=== PATIENT | female | born 1935 | race African-American/Black ===

== ENCOUNTER 2017-12-01 22:40 | Emergency (ER) | payer MEDICARE, MEDICAID ==
[2017-12-02 01:27] LABS: #Basophils 0.1 thou/uL (0.0-0.2); #Eosinphils 0.2 thou/uL (0.0-0.7); #Lymphocytes 2.2 thou/uL (1.20-3.40); #Monocytes 0.5 thou/uL (0.11-0.59); #Neutrophils 3.1 thou/uL (1.40-6.50); %Basophils 0.9 % (0.0-1.0); %Eosinophils 3.5 % (0.0-10.0); %Lymphocytes 36.2 % (21.0-51.0); %Monocytes 8.6 % (0.0-10.0); %Neutrophils 50.8 % (42.0-75.0); Mean Corpuscular HGB CONC 31.2 g/dL (32.0-36.0); Mean Corpuscular Hemoglobin 26.1 pg (27.0-31.0); Mean Corpuscular Volume 83.8 fl (81.0-99.0); Mean Platelet Volume 9.2 fL (7.4-10.4); Platelet Count 172 thou/uL (130-400); Red Blood Cell (RBC) Count 4.59 mill/uL (4.20-5.40); White Blood Cell (WBC) Count 6.1 thou/uL (4.8-10.8)
[2017-12-02 01:34] LABS: ALT (SGPT) 12 U/L (8-55); AST (SGOT) 21 U/L (5-34); Albumin 3.8 g/dL (3.4-4.8); Alkaline Phosphatase 90 U/L (40-150); Anion Gap 13 mmol/L (10-20); BUN (Urea Nitrogen) 19 mg/dL (9.8-20.1); Bilirubin, Total 0.4 mg/dL (0.2-1.2); Calc. Creatinine Clearance 0 mL/min (70-130); Calcium 9.9 mg/dL (7.8-10.44); Carbon Dioxide 26 mmol/L (23-31); Chloride 106 mmol/L (98-107); Estimated GFR-MDRD 50; Globulin 2.9 g/dL (2.4-3.5); Glucose 119 mg/dL (83-110); Lipase 11 U/L (8-78); Magnesium 2.2 mg/dL (1.6-2.6); Protein, Total 6.7 g/dL (6.0-8.3); Sodium 141 mmol/L (136-145)
[2017-12-02] MEDS ORDERED: predniSONE 20 MG TAB ONE (01:35)
[2017-12-02 01:37] LABS: CKMB 2.9 ng/mL (0-6.6)
--- NOTE | 2017-12-02 07:39 | RAD ---
CHEST 2 VIEWS: HISTORY: Shortness of breath, cough. COMPARISON: Chest 2 views from 2017. FINDINGS: The lungs are clear. No pneumothorax or effusion. Cardiac silhouette and mediastinal contours are w ithin normal limits. Bilateral total shoulder arthroplasties. IMPRESSION: No acute intrathoracic abnormality. POS: [facility]
== END 2017-12-02 02:50 | disposition home or self-care (01) ==
LOC: ERS 22:40
DX: J45.901 Unspecified asthma with (acute) exacerbation (principal); E11.9 Type 2 diabetes mellitus without complications; Z79.4 Long term (current) use of insulin; K21.9 Gastro-esophageal reflux disease without esophagitis; E78.5 Hyperlipidemia, unspecified; I11.0 Hypertensive heart disease with heart failure; I50.9 Heart failure, unspecified; J45.909 Unspecified asthma, uncomplicated; Z79.899 Other long term (current) drug therapy; Z87.891 Personal history of nicotine dependence
CPT/HCPCS: 36415; 71046; 80053; 82553; 83690; 83735; 83880; 84484; 85025; 93005; J7506

== ENCOUNTER 2017-12-18 16:45 | Observation (INO) | payer MEDICARE, MEDICAID ==
[~2017-12-18 16:45] MED LIST: ISOVUE-370 76%-LOCM 1 ML ONE
--- NOTE | 2017-12-18 17:22 | RAD ---
CHEST TWO VIEWS: 12/18/17 COMPARISON: 12/02/17 study. HISTORY: Cough and left sided pleuritic chest pain. Heart size is borderline. The aorta is tortuous. The lungs are clear of infiltrates. Bilateral nahomy l prostheses are present. IMPRESSION: No active intrathoracic disease. POS: [facility]
[2017-12-18 18:01] LABS: #Basophils 0.1 thou/uL (0.0-0.2); #Lymphocytes 1.8 thou/uL (1.20-3.40); #Monocytes 0.6 thou/uL (0.11-0.59); #Neutrophils 4.3 thou/uL (1.40-6.50); %Basophils 1.3 % (0.0-1.0); %Eosinophils 0.1 % (0.0-10.0); %Lymphocytes 26.7 % (21.0-51.0); %Monocytes 9.2 % (0.0-10.0); %Neutrophils 62.6 % (42.0-75.0); Mean Corpuscular Hemoglobin 25.8 pg (27.0-31.0); Mean Corpuscular Volume 83.3 fl (81.0-99.0); Mean Platelet Volume 9.7 fL (7.4-10.4); Platelet Count 147 thou/uL (130-400); Red Blood Cell (RBC) Count 4.65 mill/uL (4.20-5.40); White Blood Cell (WBC) Count 6.8 thou/uL (4.8-10.8)
[2017-12-18 18:07] LABS: PTT 31.6 SEC (22.9-36.1); Prothrombin Time 13.7 SEC (12.0-14.7)
[2017-12-18 18:09] LABS: D-Dimer Test 0.73 *mcg/mL (0.27-0.43)
[2017-12-18] MEDS ORDERED: methylPREDNISolone Sod Succ/PF 125 MG/2 ML VIAL ONE (18:12)
[2017-12-18] MEDS ORDERED: Sterile Water 10 ML ONE (18:14)
[2017-12-18 18:24] LABS: ALT (SGPT) 16 U/L (8-55); AST (SGOT) 26 U/L (5-34); Albumin 3.4 g/dL (3.4-4.8); Alkaline Phosphatase 72 U/L (40-150); Anion Gap 16 mmol/L (10-20); BUN (Urea Nitrogen) 30 mg/dL (9.8-20.1); Bilirubin, Total 0.4 mg/dL (0.2-1.2); CK (CPK) 311 U/L (29-168); Calc. Creatinine Clearance 0 mL/min (70-130); Calcium 8.9 mg/dL (7.8-10.44); Carbon Dioxide 25 mmol/L (23-31); Chloride 102 mmol/L (98-107); Estimated GFR-MDRD 33; Glucose 140 mg/dL (83-110); Lipase 39 U/L (8-78); Potassium 3.7 mmol/L (3.5-5.1); Protein, Total 6.4 g/dL (6.0-8.3); Sodium 139 mmol/L (136-145)
[2017-12-18 18:28] LABS: CKMB 1.2 ng/mL (0-6.6); Troponin I 0.011 ng/mL (< 0.028)
--- NOTE | 2017-12-18 19:27 | CT ---
CT ANGIO OF CHEST AND ABDOMEN PERFORMED WITH INTRAVENOUS CONTRAST ENHANCEMENT WITH 3D RECONSTRUCTIONS : 12/18/17 HISTORY: Left sided chest pain with intermittent upper abdominal pain and shortness of breath. The lungs are clear of any infiltrative process. There is a pleural based nodular density seen along the lateral chest wall in the right upper lobe. This is what appears to be some calcifications and is stable in size as compared to a 03/19/17 exam. The thoracic aorta is well opacified. It is normal in caliber without dissection. There is limited op acification of the pulmonary arteries. I do not see any obvious large central embolus. There are calc ified hilar lymph nodes present. CT ANGIO OF ABDOMEN: The liver is normal in size. Spleen shows calcification along the anterior and left lateral margin. T he spleen is stable as compared to the prior study. The pancreas region is unremarkable. The gallblad ronan has been removed. Right and left adrenal glands are normal in appearance. Right and left kidneys show hypodensities whi ch appear to represent small cysts. The abdominal aorta is normal in caliber without signs of dissection or aneurysm. There is a fat cont aining paraumbilical hernia present. IMPRESSION: No evidence of aortic aneurysm or dissection. Other chronic findings as noted above. POS: [facility]
[2017-12-18 19:57] LABS: Bilirubin Negative (Negative); Blood, Urine Negative (Negative); Clarity CLEAR (Clear); Glucose, Urine (Dipstick) Negative (Negative); Leukocyte Negative (Negative); Nitrite Negative (Negative); Protein, Urine (Dipstick) 100 mg/dL (Neg-Trace)
[2017-12-18 20:02] LABS: Bacteria/HPF None Seen HPF (None Seen); Hyaline Casts/LPF 7-10 HYALINE CAST LPF (0-3 Hyaline); Pathc Cast-AUWi Flag 1.62 (0-2.49); Squamous Epithelial 0-3 HPF (0-3); WBC/HPF 0-3 HPF (0-3)
[2017-12-18 21:58] LABS: Troponin I 0.013 ng/mL (< 0.028)
[2017-12-18] MEDS ORDERED: Mag-Al 1200 mg/1200 mg/30 ML UDCUP PO PRN (22:44)
[2017-12-18] MEDS ORDERED: Senokot 8.6 MG TAB PO PRN (22:44)
[2017-12-18] MEDS ORDERED: Acetaminophen 325 MG TAB PO PRN (22:44)
[2017-12-18] MEDS ORDERED: Ondansetron HCl/PF 4 MG/2 ML Vial IVP PRN (22:44)
[2017-12-18] MEDS ORDERED: Bisacodyl 5 MG TAB PO PRN (22:44)
[2017-12-18] MEDS ORDERED: Calcium Carbonate 500 MG ChewTAB PO PRN (22:44)
[2017-12-18] MEDS ORDERED: Nitroglycerin 0.4 MG TAB (25 Tab Bottle) PO PRN (22:44)
[2017-12-18 23:39] LABS: Cardiac Risk 4.5 (Less than 4.5)
[2017-12-18 23:43] VITALS: BMI 42.7
[2017-12-19 00:10] LABS: Troponin I 0.012 ng/mL (< 0.028)
[2017-12-19] MEDS ORDERED: Nitroglycerin 0.4 MG TAB (25 Tab Bottle) SL PRN (02:32)
[2017-12-19] MEDS ORDERED: PROVENTIL INHALER 6.7 G (200 INHALATIONS) INH PRN ×2 (02:32→20:00)
[2017-12-19] MEDS ORDERED: Acetaminophen 325 MG TAB PO PRN (02:34)
--- NOTE | 2017-12-19 03:22 | HP ---
DATE OF ADMISSION: 12/18/2017 Please note that the patient was seen prior to midnight. CHIEF COMPLAINT: Chest pain and back pain. PRIMARY CARE PHYSICIAN: Vicki Carrillo. HISTORY OF PRESENT ILLNESS: Ms. Narayan is an 82-year-old -Citizen Of [place] female with a known his tory of diabetes, hypertension, chronic congestive diastolic heart failure, COPD on home oxygen, and coronary artery disease, who presented to the emergency room with the above-mentioned complaint. His tory is mainly obtained by the patient herself who is a rather poor historian. Electronic medical re cords have been reviewed. According to Ms. Narayan, she had back pain and that is why she presented to the ER when asked abou t the chest pain, she said "Oh ya, I also had that." Other than that, she cannot tell me much histor y. She endorses shortness of breath and then prompted. She reports that her chest pain was dull and achy and later she said her chest pain was rather sharp. Nevertheless, she is currently symptom nicole e. She otherwise declined any recent illnesses or flu like symptoms. Upon presentation to the emergency room, her blood pressure was 172/59 and she was saturating 98% on room air, she was afebrile. She underwent general examination which was unremarkable including a 12- lead EKG and chest x-ray. She underwent a CT of the chest, abdomen, for dissection rule out, and was negative for the same. She was not found to have any infiltrates either. There is one vital sign r ecord in the emergency room of hypoxia with oxygen saturation of 84% on room air. Nevertheless, she received one dose of Rocephin in the emergency room for "pneumonia." Her D-dimer was also elevated t o 0.73. Otherwise, her cardiac enzymes were done and serial cardiac enzymes are negative x3. She is now being admitted for further evaluation and chest pain workup, rule out acute coronary syndrome. Her last stress test was in 2014, which was unremarkable. Her last echocardiogram was in 09/2016, wh ich showed ejection fraction of 60% without any significant valvular abnormalities. Her flu swab is negative today. PAST MEDICAL HISTORY: 1. Diabetes. 2. Hypertension. 3. Dyslipidemia. 4. History of coronary artery disease. 5. Chronic obstructive pulmonary disease, on home oxygen. 6. Gastroesophageal reflux disease. PAST SURGICAL HISTORY: 1. Right and left rotator cuff surgery. 2. Carpal tunnel surgery. 3. Bilateral knee surgery. 4. Right eye surgery. ALLERGIES: IBUPROFEN, LEVOFLOXACIN. SOCIAL HISTORY: She lives with her daughter who is very supportive. The patient is otherwise indepe ndent with ADLs and IADLs. No history of drug, tobacco, or alcohol abuse. FAMILY HISTORY: Significant for diabetes, hypertension, and heart disease. CURRENT HOME MEDICATIONS: Trazodone 50 mg at bedtime, Bystolic 20 mg daily, amitriptyline 25 mg radha y, montelukast 10 mg daily, Norvasc 2.5 mg daily, albuterol inhaler as needed, Nexium 40 mg daily, as pirin 81 mg daily, hydrocortisone ointment, Lasix 20 mg daily, and sublingual nitroglycerin p.r.n. REVIEW OF SYSTEMS: The following complete review of systems was negative, unless otherwise mentioned in the HPI or below: Constitutional: Weight loss or gain, ability to conduct usual activities. Sk in: Rash, itching. Eyes: Double vision, pain. ENT/Mouth: Nose bleeding, neck stiffness, pain, te nderness. Cardiovascular: Palpitations, dyspnea on exertion, orthopnea. Respiratory: Shortness of breath, wheezing, cough, hemoptysis, fever or night sweats. Gastrointestinal: Poor appetite, abdom inal pain, heartburn, nausea, vomiting, constipation, or diarrhea. Genitourinary: Urgency, frequenc y, dysuria, nocturia. Musculoskeletal: Pain, swelling. Neurologic/Psychiatric: Anxiety, depressio n. Allergy/Immunologic: Skin rash, bleeding tendency. LABORATORY AND DIAGNOSTIC DATA: CBC is rather unimpressive and unremarkable. She has no leukocytosi s anemia or left shift. D-dimer is 0.73. Serum chemistry: BUN 30, creatinine 1.79, blood sugar of 140, creatinine kinase 311. CK-MB normal. Troponin normal x3. BNP less than 10. Lipase unremarkab le. Urinalysis shows proteinuria, but otherwise normal. Chest x-ray by my review has no evidence to suggest pulmonary effusion, infiltrate, or edema. CT with aortic dissection protocol is negative fo r the same. PHYSICAL EXAMINATION: VITAL SIGNS: Upon presentation, blood pressure 172/59, pulse of 82, respirations 20, saturating 98% on room air, temperature 98.9. Most recent blood pressure is 130/66 and she is 98% on 1 liter oxygen . GENERAL: No acute distress, awake, alert, oriented x3. HEENT: Mucous membrane is moist and pink. No oropharyngeal exudate or erythema. Head is normocepha lic, atraumatic. Pupils are equal, reactive to light, and accommodation. Extraocular movements inta ct. NECK: Supple without any lymphadenopathy, JVD, or bruit. CHEST: Clear to auscultation without any wheezing, rales, or rhonchi. Rate and rhythm are regular w ithout any murmur, rubs, or gallops. ABDOMEN: Soft, nontender, nondistended with positive bowel sounds. EXTREMITIES: Free of any cyanosis, clubbing, or edema. NEUROLOGIC: Nonfocal. SKIN: Free of any rashes or bruises. Feels warm and dry to touch. PSYCHIATRIC: Normal affect. IMPRESSION AND PLAN: 1. Chest pain. The patient's symptoms are rather unclear. There is a high possibility because of t he chronic obstructive pulmonary disease flareup. Nevertheless, given her history of coronary artery disease, we will go ahead and obtain a nuclear medicine stress test and admit her to telemetry unit. We will restart her aspirin and beta-todd at this point. Continue to monitor blood pressure charline sely. Serial cardiac enzymes have been unremarkable so far. I do not see any evidence of congestive heart failure, pneumonia on her chest x-ray or her CT scan. At this time, antibiotics are not indic ated. She does not look septic. 2. Chronic obstructive pulmonary disease with chronic hypoxic respiratory failure. Continue oxygen on a regular basis. There was some question of chronic obstructive pulmonary disease flareup for the emergency room physician who found her to be having some wheezing. She will be continued on IV ster oids as initiated in the emergency room along with nebulizers as needed and scheduled. 3. Chronic kidney disease, stage 3. The patient does not appear to be dehydrated at this time. We will avoid any IV fluids. 4. 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 Continue insulin sliding scale with frequent A ccu-Cheks. 5. History of hypertension. Resume home medications as dictated above. 6. History of coronary artery disease. Resume aspirin, beta todd. CODE STATUS: FULL CODE. Discussed with the patient. DISPOSITION: Ms. Narayan is being admitted to observation status for ACS workup. Further manageme nt will depend upon her clinical course.
[2017-12-19 05:48] LABS: Band 20 % (5-11); Hemoglobin 11.9 g/dL (12.0-16.0); Lymphocytes 8 % (21-51); MDiff Complete? YES; Mean Corpuscular HGB CONC 30.9 g/dL (32.0-36.0); Mean Corpuscular Hemoglobin 25.9 pg (27.0-31.0); Mean Corpuscular Volume 83.7 fl (81.0-99.0); Monocytes 3 % (0-10); Neutrophil 69 % (42-75); PLT Morphology Comment Appears Adequate; Platelet Count 147 thou/uL (130-400); RBC Morphology Normal; White Blood Cell (WBC) Count 5.2 thou/uL (4.8-10.8)
[2017-12-19 05:52] LABS: Anion Gap 14 mmol/L (10-20); BUN (Urea Nitrogen) 28 mg/dL (9.8-20.1); Calc. Creatinine Clearance 47 mL/min (70-130); Calcium 9.1 mg/dL (7.8-10.44); Carbon Dioxide 25 mmol/L (23-31); Chloride 103 mmol/L (98-107); Estimated GFR-MDRD 40; Glucose 159 mg/dL (83-110); Potassium 4.2 mmol/L (3.5-5.1); Sodium 138 mmol/L (136-145)
[2017-12-19] MEDS ORDERED: Hydrocortisone 1% Cream 30 GM TUBE TOP PRN (09:00)
[2017-12-19] MEDS ORDERED: Famotidine 20 MG TAB PO SCH (09:00)
[2017-12-19] MEDS ORDERED: Regadenoson 0.4 MG/5 ML SYRINGE ONE (09:46)
[2017-12-19] MEDS: Amitriptyline HCl 25 MG TAB PO SCH (10:23)
[2017-12-19] MEDS: Famotidine 20 MG TAB PO SCH (10:24)
[2017-12-19] MEDS: Enoxaparin Sodium 40 MG/0.4 ML SYRINGE SC SCH (10:24)
[2017-12-19] MEDS: Aspirin 81 mg Enteric Coated Tablet PO SCH (10:24)
[2017-12-19] MEDS: Amlodipine 5 MG TAB PO SCH ×2 (10:24→16:58)
[2017-12-19] MEDS: Furosemide 20 MG TAB PO SCH (10:25)
[2017-12-19] MEDS: Montelukast Sodium 10 mg Tablet PO SCH (10:25)
[2017-12-19] MEDS: Nebivolol HCl 5 MG TAB PO SCH (10:25)
--- NOTE | 2017-12-19 15:33 | NM ---
NUCLEAR MEDICINE CARDIAC MYOCARDIAL PERFUSION SPECT EJECTION FRACTION STUDY WALL MOTION CINE: Date: 12/19/17 HISTORY: 82-year-old female with diabetes mellitus and hypertension, with family history of coronary artery di sease, presents with acute chest pain. TECHNIQUE: Number of days: 1 Rest study: Tc99m sestamibi (Cardiolite) dose: Not performed Pharmacologic stress: Lexiscan dose: 0.4 mg Stress study: Tc99m sestamibi (Cardiolite) dose: 27.5 mCi (Stress only study) FINDINGS: CARDIAC (MYOCARDIAL PERFUSION) SPECT Distribution of sestamibi is homogeneous throughout the left ventricle, with no myocardial perfusion defects. EJECTION FRACTION STUDY EF = 80% WALL MOTION CINE The left ventricular wall motion is normal. There is normal systolic wall thickening. IMPRESSION: Normal. ayo[] POS: [facility]
--- NOTE | 2017-12-19 16:47 | PDOC.PN ---
- Subjective Encounter Start Date: 12/19/17 Encounter Start Time: 16:45 Pt seen for followup re: acute encephalopathy. Denies chest pain, shortness of breath, fevers or chills. - Objective MAR Reviewed: Yes Vital Signs & Weight: Vital Signs (12 hours) Temp Pulse Pulse Pulse Resp BP BP 12/19/17 15:30 98.2 F 78 16 12/19/17 14:41 76 75 159/74 H 175/80 H 12/19/17 14:18 76 20 12/19/17 08:00 97.4 F L 76 20 12/19/17 07:42 97.4 F L 76 20 12/19/17 07:11 12/19/17 07:08 70 16 BP Pulse Ox 12/19/17 15:30 183/81 H 98 12/19/17 14:41 12/19/17 14:18 12/19/17 08:00 12/19/17 07:42 158/78 H 97 12/19/17 07:11 98 12/19/17 07:08 98 I&O: 12/18/17 12/19/17 12/20/17 06:59 06:59 06:59 Output Total 300 150 Balance -300 -150 Result Diagrams: 12/19/17 04:24 12/19/17 04:24 Additional Labs: Accuchecks 12/19/17 05:27 POC Glucose 143 H EKG Reviewed by me: Yes (Tele: NSR) Phys Exam - Physical Examination Morbid obesity HEENT: moist MMs Neck: supple Respiratory: wheezing present Cardiovascular: RRR Gastrointestinal: soft Neurological: moves all 4 limbs Psychiatric: normal affect Deviation from normal: Orfiented to person only Skin: no rash Dx/Plan (1) Acute encephalopathy Code(s): G93.40 - ENCEPHALOPATHY, UNSPECIFIED Status: Acute (2) COPD exacerbation Code(s): J44.1 - CHRONIC OBSTRUCTIVE PULMONARY DISEASE W (ACUTE) EXACERBATION Status: Acute (3) Chest pain Code(s): R07.9 - CHEST PAIN, UNSPECIFIED Status: Resolved (4) CAD (coronary artery disease) Code(s): I25.10 - ATHSCL HEART DISEASE OF [place] CORONARY ARTERY W/O ANG PCTRS Status: Chronic Qualifiers: Coronary Disease-Associated Artery/Lesion type: [place] artery [place] vs. transplanted heart: [place] heart Associated angina: without angina Qualified Code(s): I25.10 - Atherosclerotic heart disease of [place] coronary artery without angina pectoris (5) DM type 2 (diabetes mellitus, type 2) Status: Chronic Qualifiers: Diabetes mellitus complication status: with unspecified complications Diabetes mellitus shelter insulin use: with parts counterman use Qualified Code(s) : E11.8 - Type 2 diabetes mellitus with unspecified complications; Z79.4 - tank terminal gauger (current) use of insulin (6) GERD (gastroesophageal reflux disease) Code(s): K21.9 - GASTRO-ESOPHAGEAL REFLUX DISEASE WITHOUT ESOPHAGITIS Status: Chronic Qualifiers: Esophagitis presence: without esophagitis Qualified Code(s): K21.9 - Gastro -esophageal reflux disease without esophagitis (7) HTN (hypertension) Code(s): I10 - ESSENTIAL (PRIMARY) HYPERTENSION Status: Chronic Qualifiers: Hypertension type: essential hypertension Qualified Code(s): I10 - Essential (primary) hypertension (8) CKD (chronic kidney disease) Code(s): N18.9 - CHRONIC KIDNEY DISEASE, UNSPECIFIED Status: Chronic - Plan * . Stress test normal. Encephalopathy likely due to steroids. Discontinue IV steroids, change to prednisone (to cover for COPD exacerbation) at a lower dose and monitor. Home when encephalopathy resolves. Review of Systems - Review of Systems Constitutional: negative: fever, chills, sweats, weakness, malaise Cardiovascular: negative: chest pain, palpitations, orthopnea, paroxysmal nocturnal dyspnea, edema, light headedness Neurological: Confusion. negative: Weakness, Numbness, Incoordination, Change in Speech, Seizures - Medications/Allergies Allergies/Adverse Reactions: Allergies Allergy/AdvReac Type Severity Reaction Status Date / Time ibuprofen Allergy Intermediate Rash Verified 12/18/17 23:42 levofloxacin [From Levaquin] Allergy Intermediate Rash Verified 12/18/17 23:42 Medications: Current Medications Acetaminophen (Tylenol) 650 mg PO Q4H PRN PRN Reason: Headache/Fever or Pain Acetaminophen (Tylenol) 650 mg PO Q6H PRN PRN Reason: ARTHRITIS Al Hydroxide/Mg Hydroxide (Maalox) 30 ml PO Q6H PRN PRN Reason: Heartburn or Indigestion Albuterol Sulfate (Proventil Hfa) 2 puff INH Q4HR PRN PRN Reason: SOB &/or Wheezing Albuterol/Ipratropium (Duoneb) 3 ml NEB [id number] PRN PRN Reason: SOB &/or Wheezing Albuterol/Ipratropium (Duoneb) 3 ml NEB [id number] [facility] Last Admin: 12/19/17 14:18 Dose: 3 ml Amitriptyline HCl (Elavil) 25 mg PO DAILY [facility] Last Admin: 12/19/17 10:23 Dose: Not Given Amlodipine Besylate (Norvasc) 2.5 mg PO DAILY [facility] Last Admin: 12/19/17 10:24 Dose: Not Given Aspirin (Ecotrin) 81 mg PO DAILY [facility] Last Admin: 12/19/17 10:24 Dose: Not Given Bisacodyl (Dulcolax) 10 mg PO DAILYPRN PRN PRN Reason: Constipation Calcium Carbonate (Tums) 1,000 mg PO Q4H PRN PRN Reason: Heartburn or Indigestion Enoxaparin Sodium (Lovenox) 40 mg SC 0900 [facility] Last Admin: 12/19/17 10:24 Dose: Not Given Famotidine (Pepcid) 20 mg PO DAILY [facility] Last Admin: 12/19/17 10:24 Dose: Not Given Furosemide (Lasix) 20 mg PO DAILY [facility] Last Admin: 12/19/17 10:25 Dose: Not Given Hydrocortisone/Aloe (Hydrocortisone 1% Cream) 0 gm TOP TID PRN PRN Reason: RASH/ITCH Montelukast Sodium (Singulair) 10 mg PO DAILY [facility] Last Admin: 12/19/17 10:25 Dose: Not Given Nebivolol (Bystolic) 20 mg PO DAILY [facility] Last Admin: 12/19/17 10:25 Dose: Not Given Nitroglycerin (Nitrostat) 0.4 mg PO Q5MIN PRN PRN Reason: Chest Pain Nitroglycerin (Nitrostat) 0.4 mg SL Q5MIN PRN PRN Reason: Chest Pain Ondansetron HCl (Zofran) 4 mg IVP Q6H PRN PRN Reason: Nausea/Vomiting Pantoprazole Sodium (Protonix) 40 mg PO DAILY [facility] Last Admin: 12/19/17 10:25 Dose: Not Given Prednisone (Prednisone) 40 mg PO QAM-[facility] Senna (Senokot) 2 tab PO HSPRN PRN PRN Reason: Constipation Sodium Chloride (Flush - Normal Saline) 10 ml IVF PRN PRN PRN Reason: Saline Flush Trazodone HCl (Desyrel) 50 mg PO HS [facility]
[2017-12-19] MEDS ORDERED: hydrALAZINE 20 MG/ML VIAL SLOW IVP PRN (19:59)
[2017-12-19] MEDS: Benzonatate 100 MG CAP PO PRN (20:32)
[2017-12-19] MEDS ORDERED: traZODone HCl 50 MG TAB PO SCH (21:00)
[2017-12-20] MEDS ORDERED: Sterile Water 10 ML VIAL FS SCH (01:45)
[2017-12-20] MEDS ORDERED: Ziprasidone 20 MG VIAL IM SCH (01:45)
[2017-12-20] MEDS: Benzonatate 100 MG CAP PO PRN (02:52)
[2017-12-20] MEDS ORDERED: predniSONE 20 MG TAB PO SCH (08:00)
[2017-12-20] MEDS: Amitriptyline HCl 25 MG TAB PO SCH (09:08)
[2017-12-20] MEDS: Aspirin 81 mg Enteric Coated Tablet PO SCH (09:09)
[2017-12-20] MEDS: Amlodipine 5 MG TAB PO SCH (09:09)
[2017-12-20] MEDS: Nebivolol HCl 5 MG TAB PO SCH (09:10)
[2017-12-20] MEDS: Montelukast Sodium 10 mg Tablet PO SCH (09:10)
[2017-12-20] MEDS: Enoxaparin Sodium 40 MG/0.4 ML SYRINGE SC SCH (09:10)
[2017-12-20] MEDS: Furosemide 20 MG TAB PO SCH (09:10)
[2017-12-20] MEDS: Famotidine 20 MG TAB PO SCH (09:10)
[2017-12-20 11:55] VITALS: BP 145/83; TEMP 97.3
--- NOTE | 2017-12-21 02:36 | DIS ---
DATE OF ADMISSION: 12/18/2017 DATE OF DISCHARGE: 12/20/2017 FINAL DIAGNOSES: 1. Chest pain, acute coronary syndrome was ruled out with cardiac enzymes, EKG, and stress test. 2. Chronic obstructive pulmonary disease with chronic hypoxic respiratory failure. 3. Chronic kidney disease stage 3. 4. 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 5. Hypertension. 6. Gastroesophageal reflux disease. 7. History of coronary artery disease. HOSPITAL COURSE: The patient is an 82-year-old -[place] female with known history of diabete s mellitus, hypertension, chronic obstructive pulmonary disease and chronic congestive diastolic hear t failure. She is on O2 at home. Also, she has a history of coronary artery disease, who presented to the emergency room with pain in the chest and the back. At the time of Emergency Room evaluation, her blood pressure was elevated at 172/59, she was saturating at 98% on room air and she was afebril e. She underwent general examination, which was unremarkable. Also, she had a lead EKG and x-ray do ne. The CT of the chest, abdomen for dissection, ruled out aortic dissection. Continuation of pulse oximetry measurements showed that she was hypoxic on room air while in the emergency room, so she re ceived Rocephin for possible pneumonia and she had 3 sets of cardiac enzymes, which came back negativ e and she was admitted to the hospital for further evaluation of her chest pain and rule out acute co ronary syndrome. Her last stress test was done in 2014, which was unremarkable. Her last echocardio gram was done in 09/2016, which showed ejection fraction of 60% without any significant valvular abno rmalities. The patient got admitted to observation because of her hypoxia, she was continued on IV s teroids, but because of significant changes in her mentation status, she was switched to p.o. prednis one and her mental status improved. According to the family, she has some baseline issue with her me ntal function and today, we received a message that her mental condition is back to normal. Today, s he underwent cardiac stress test, which showed left ventricle wall motion with normal limits and ther e was normal systolic wall thickening. Her ejection fraction was estimated 80%, there was no any isc hemia and the test was read by radiologist as normal. The patient is doing well. She received some DuoNebs. We would like her to continue on O2 at home. She was discharged home in good condition. PHYSICAL EXAMINATION: VITAL SIGNS: Blood pressure 145/83, pulse is 72, temperature 97.3, respiratory rate is 12. She is s aturating 100% on room air. MEDICATIONS: Her medications at the time of discharge, tessalon perles 100 mg q.4 hours p.r.n. 10 ca psules, prednisone 40 mg, 20 mg tablets 2 tablets once a day for the next 3 days. Other medications at the time of discharge: Tylenol 650 q.6 hours p.r.n. for the pain, albuterol HFA, ProAir 2 puffs q .4 hours p.r.n. as needed, amitriptyline 25 mg once a day, amlodipine 2.5 mg once a day, aspirin 81 m g once a day, Nexium 40 mg once a day, furosemide 20 mg once a day, hydrocortisone topical 3 times a day p.r.n., montelukast 10 mg once a day, Bystolic 20 mg once a day, nitroglycerin 0.4 mg sublingual every 5 minutes p.r.n. for the chest pain and trazodone 50 mg at bedtime. The patient was discharged in good condition. She was evaluated examining before she was discharged. She is going to follow up with her primary care physician in 1 week. She will stay on 2000 calorie s ADA diet and activities as tolerated. She will continue her O2. The patient was seen and examined before she was discharged. Discharge time is less than 30 minutes.
== END 2017-12-20 15:52 | disposition home or self-care (01) ==
LOC: ERS 16:45 → 2SW 20:15
PROVIDERS: ADMIT Internal Medicine; ATTEND Internal Medicine
DX: R07.89 Other chest pain (principal); J44.9 Chronic obstructive pulmonary disease, unspecified; J96.11 Chronic respiratory failure with hypoxia; I12.9 Hypertensive chronic kidney disease with stage 1 through stage 4 chronic kidney disease, or unspecified chronic kidney disease; E11.22 Type 2 diabetes mellitus with diabetic chronic kidney disease; N18.3 Chronic kidney disease, stage 3 (moderate); K21.9 Gastro-esophageal reflux disease without esophagitis; I25.10 Atherosclerotic heart disease of native coronary artery without angina pectoris; E78.5 Hyperlipidemia, unspecified; Z88.6 Allergy status to analgesic agent; Z88.1 Allergy status to other antibiotic agents; Z79.899 Other long term (current) drug therapy; Z98.890 Other specified postprocedural states
CPT/HCPCS: 51701; 71046; 71275; 78452; 80048; 80053; 80061; 82550; 82553; 82962 ×2; 83690; 83735; 83880; 84484 ×2; 85025 ×2; 85379; 85610; 85730; 87804 ×2; 93005; 93017; 94640 ×3; 94760 ×2; 96372; 96374; 96375; 96376 ×2; 97139 ×2; 99285; A9500; G0378; G8978; G8979; 36415; 36416; 81003; 81015; A4216; A4353; J0696; J1650; J2785; J2920; J2930; J3486; J7506; J7620

== ENCOUNTER 2018-03-06 13:18 | Inpatient (IN) | payer MEDICARE, MEDICAID ==
[2018-03-06] MEDS ORDERED: HYDROcodone/Acetaminophen 5/325 mg Tablet ONE (15:02)
[2018-03-06 15:14] LABS: #Eosinphils 0.1 thou/uL (0.0-0.7); #Lymphocytes 2.9 thou/uL (1.20-3.40); #Monocytes 0.7 thou/uL (0.11-0.59); #Neutrophils 4.6 thou/uL (1.40-6.50); %Basophils 0.4 % (0.0-1.0); %Eosinophils 1.6 % (0.0-10.0); %Lymphocytes 34.6 % (21.0-51.0); %Monocytes 8.7 % (0.0-10.0); %Neutrophils 54.8 % (42.0-75.0); Hemoglobin 12.7 g/dL (12.0-16.0); Mean Corpuscular HGB CONC 32.5 g/dL (32.0-36.0); Mean Corpuscular Hemoglobin 26.8 pg (27.0-31.0); Mean Corpuscular Volume 82.3 fl (81.0-99.0); Mean Platelet Volume 8.9 fL (7.4-10.4); Platelet Count 188 thou/uL (130-400); Red Blood Cell (RBC) Count 4.74 mill/uL (4.20-5.40); White Blood Cell (WBC) Count 8.4 thou/uL (4.8-10.8)
[2018-03-06] MEDS ORDERED: ISOVUE-370 76%-LOCM 1 ML ONE (15:23)
[2018-03-06 15:36] LABS: CKMB 2.9 ng/mL (0-6.6); Troponin I 0.015 ng/mL (< 0.028)
[2018-03-06 15:39] LABS: AST (SGOT) 20 U/L (5-34); Albumin 4.1 g/dL (3.4-4.8); Anion Gap 17 mmol/L (10-20); Bilirubin, Total 0.3 mg/dL (0.2-1.2); Calc. Creatinine Clearance 0 mL/min (70-130); Calcium 9.9 mg/dL (7.8-10.44); Carbon Dioxide 19 mmol/L (23-31); Chloride 106 mmol/L (98-107); Estimated GFR-MDRD 40; Globulin 3.1 g/dL (2.4-3.5); Glucose 134 mg/dL (83-110); Potassium 4.1 mmol/L (3.5-5.1); Protein, Total 7.2 g/dL (6.0-8.3); Sodium 138 mmol/L (136-145)
[2018-03-06 15:45] LABS: Alkaline Phosphatase 102 U/L (40-150)
[2018-03-06 15:46] LABS: BUN (Urea Nitrogen) 24 mg/dL (9.8-20.1)
[2018-03-06 15:48] LABS: ALT (SGPT) 14 U/L (8-55); CK (CPK) 249 U/L (29-168)
--- NOTE | 2018-03-06 15:54 | RAD ---
TWO VIEWS RIGHT HIP: DATE: 03/06/18. PROVIDED CLINICAL HISTORY: Right hip pain status post fall. FINDINGS: Comparison 04/06/10. Due to radiographic technique and patient body habitus, the examination was nond iagnostic. No gross evidence for dislocation. IMPRESSION: Nondiagnostic exam. POS: [facility]
--- NOTE | 2018-03-06 15:57 | RAD ---
RIGHT KNEE RADIOGRAPHS 4 VIEWS: DATE: 03/06/18. PROVIDED CLINICAL HISTORY: Right knee pain status post injury. FINDINGS: Changes of right total knee arthroplasty are demonstrated without evidence for hardware complication. No evidence for fracture or other acute osseous abnormality. If there is persistent clinical carmen rn, conservative management and followup imaging are advised. IMPRESSION: As above. POS: [facility]
[2018-03-06 16:03] LABS: Bilirubin Negative (Negative); Blood, Urine Negative (Negative); Glucose, Urine (Dipstick) Negative (Negative); Leukocyte Negative (Negative); Nitrite Negative (Negative); Protein, Urine (Dipstick) Negative (Neg-Trace); Urobilinogen 0.2 mg/dL (0.2-1.0)
[2018-03-06 16:11] LABS: Clarity CLEAR (Clear)
--- NOTE | 2018-03-06 16:12 | RAD ---
LEFT KNEE RADIOGRAPHS FOUR VIEWS: 03/06/18 PROVIDED CLINICAL HISTORY: Left knee pain status post injury. FINDINGS/IMPRESSION: Postoperative changes of left total knee arthroplasty without evidence for hardware complication. No evidence for fracture or other acute osseous abnormality. If there is persistent clinical concern, co nservative management and followup imaging are advised. POS: [facility]
--- NOTE | 2018-03-06 16:28 | CT ---
CT BRAIN 03/06/18 PROVIDED CLINICAL HISTORY: Altered mental status. FINDINGS: Comparison 03/23/17. Ventricular system is normal in size and morphology. No evidence for intracranial hemorrhage or mass effect. Chronic microvascular ischemic changes are noted. The extracranial soft tissues and osseous s tructures demonstrate an unremarkable CT appearance. IMPRESSION: No evidence for intracranial hemorrhage or mass effect. POS: [facility]
--- NOTE | 2018-03-06 17:49 | CT ---
CT ABDOMEN AND PELVIS WITH IV CONTRAST 03/06/18 HISTORY: Right hip pain, abdominal pain. FINDINGS: Comparison is made with the exam of 12/06/16. The lung bases are unremarkable. There are changes of cholecystectomy. Peripheral capsular calcificat ion on the lateral aspect of the spleen and tiny low density lesion in the superior posterior aspect of the spleen are stable. Calcified granulomas in the liver are again seen. Bilateral renal cysts are redemonstrated. The pancreas and adrenal glands are normal. Small hiatal hernia is again seen. No free air, free fluid or lymphadenopathy is seen in the abdomen or pelvis. The uterus is present. C olonic diverticulosis again seen without evidence of pericolonic inflammatory changes to suggest dive rticulitis. Small lipoma in the gastric antrum is redemonstrated. A fat containing ventral hernia is again noted. There are degenerative changes in the spine. Vascular calcifications are present without evidence of aneurysmal dilatation of the abdominal aorta. IMPRESSION: 1. Small hiatal hernia. 2. Bilateral renal cysts. 3. Gastric antrum lipoma. 4. Colonic diverticulosis without evidence of diverticulitis. 5. Fat containing ventral hernia. POS: [facility]
[2018-03-06] MEDS ORDERED: Lorazepam 2 MG/ML VIAL ONE (18:14)
--- NOTE | 2018-03-06 18:28 | PDOC.FPRHP ---
- History of Present Illness Chief Complaint: AMS - Allergies/Adverse Reactions Allergies Allergy/AdvReac Type Severity Reaction Status Date / Time ibuprofen Allergy Intermediate Rash Verified 12/18/17 23:42 levofloxacin [From Levaquin] Allergy Intermediate Rash Verified 12/18/17 23:42 - Home Medications Medication Instructions Recorded Confirmed Type traZODone HCl [Desyrel] 50 mg PO HS 10/15/15 12/18/17 History Esomeprazole Magnesium [NexIUM] 40 mg PO DAILY 08/23/16 12/18/17 History Furosemide [Lasix] 20 mg PO DAILY 08/23/16 12/18/17 History Aspirin [Ecotrin Low Strength] 81 mg PO DAILY tab 08/27/16 12/18/17 Rx Acetaminophen [Tylenol Arthritis] 650 mg PO Q6H PRN 02/04/17 12/18/17 History Albuterol Sulfate [Proair HFA] 2 puff INH Q4HR PRN 02/04/17 12/18/17 History Amlodipine [Norvasc] 2.5 mg PO DAILY #30 tab 02/04/17 12/18/17 Rx Hydrocortisone [Hydrocortisone 1% 1 applic TOP TID PRN 02/04/17 12/18/17 History Ointment] Nebivolol HCl [Bystolic] 20 mg PO DAILY #30 tablet 02/04/17 12/18/17 Rx Nitroglycerin [Nitrostat] 0.4 mg SL Q5MIN PRN #20 tab 02/04/17 12/18/17 Rx Amitriptyline HCl 25 mg PO DAILY 12/18/17 12/18/17 History Montelukast Sodium 10 mg PO DAILY 12/18/17 12/18/17 History Benzonatate [Tessalon] 100 mg PO Q4H PRN #10 cap 12/20/17 Rx predniSONE 40 mg PO QAM-WM #6 tab 12/20/17 Rx - History PMHx: PSHx: FHx: Social: MEDICAL HISTORY Past medical history includes cardiac history, angina, Past medical history includes history of diabetes II, Past medical history includes gastrointestinal disease, gastroesophageal reflux disease, Past medical history includes history of hyperlipidemia, high cholesterol, Notes: brain tumor "early dementia", Past medical history includes history of hypertension, Past medical history includes cardiac history, congestive heart failure,Past medical history includes pulmonary disease, asthma. Blind in right eye. Surgical history of carpal tunnel surgery, Notes: left wrist, left EYE SX, Surgical history of orthopedic surgery, BILATERAL KNEE SX. NEW LENS TO RIGHT EYE BACK SURGERY ON "TAIL BONE" RIGHT ROTATOR CUFF SX. No previous psychiatric history, no history of suicidal ideations, No history of homicidal ideations, No previous psychiatric history. Social History includes lives with daughter, Patient denies alcohol use, Patient denies drug use, Patient is a former tobacco user. - Review of Systems Neurological: reports: weakness - Vital signs BP: [] HR: [] RR: [] Tmax: [] Pox: []% on [] Wt: [] FMR H&P: Results - Labs Result Diagrams: 03/06/18 15:05 03/06/18 15:05 Lab results: WBC 8.4 thou/uL (4.8-10.8) 03/06/18 15:05 Hgb 12.7 g/dL (12.0-16.0) 03/06/18 15:05 Hct 39.0 % (36.0-47.0) 03/06/18 15:05 MCV 82.3 fl (81.0-99.0) 03/06/18 15:05 Plt Count 188 thou/uL (130-400) 03/06/18 15:05 Neutrophils % 54.8 % (42.0-75.0) 03/06/18 15:05 Sodium 138 mmol/L (136-145) 03/06/18 15:05 Potassium 4.1 mmol/L (3.5-5.1) 03/06/18 15:05 Chloride 106 mmol/L (98-107) 03/06/18 15:05 Carbon Dioxide 19 mmol/L (23-31) L 03/06/18 15:05 BUN 24 mg/dL (9.8-20.1) H 03/06/18 15:05 Creatinine 1.52 mg/dL (0.6-1.1) H 03/06/18 15:05 Glucose 134 mg/dL (83-110) H 03/06/18 15:05 Calcium 9.9 mg/dL (7.8-10.44) 03/06/18 15:05 Total Bilirubin 0.3 mg/dL (0.2-1.2) 03/06/18 15:05 AST 20 U/L (5-34) 03/06/18 15:05 ALT 14 U/L (8-55) 03/06/18 15:05 Alkaline Phosphatase 102 U/L (40-150) 03/06/18 15:05 Creatine Kinase 249 U/L (29-168) H 03/06/18 15:05 CK-MB (CK-2) 2.9 ng/mL (0-6.6) 03/06/18 15:05 B-Natriuretic Peptide 12.7 pg/mL (0-100) 03/06/18 15:05 Serum Total Protein 7.2 g/dL (6.0-8.3) 03/06/18 15:05 Albumin 4.1 g/dL (3.4-4.8) 03/06/18 15:05 Urine Ketones Negative mg/dL (Negative) 03/06/18 15:30 Urine Blood Negative (Negative) 03/06/18 15:30 Urine Nitrite Negative (Negative) 03/06/18 15:30 Ur Leukocyte Esterase Negative (Negative) 03/06/18 15:30 FMR H&P: Upper Level - Plan Date/Time: 03/06/181825 I, [], have evaluated this patient and agree with findings/plan as outlined by engineer internship resident. Pertinent changes/additions are listed here.
[2018-03-06] MEDS ORDERED: OLANZapine 5 MG TAB ONE (20:21)
[2018-03-06] MEDS ORDERED: Haloperidol Lactate 5 MG/ML VIAL ONE (20:22)
[2018-03-06] MEDS ORDERED: Ondansetron HCl/PF 4 MG/2 ML Vial IVP PRN (21:08)
[2018-03-06] MEDS ORDERED: Ondansetron ODT 4 MG TAB SL PRN (21:08)
[2018-03-07] MEDS ORDERED: Acetaminophen 325 MG TAB PO PRN (00:07)
[2018-03-07] MEDS ORDERED: Labetalol HCl 100 MG/20 ML VIAL SLOW IVP PRN ×2 (00:08→06:10)
[2018-03-07] MEDS ORDERED: cloNIDine 0.1 MG TAB PO PRN (06:09)
[2018-03-07] MEDS ORDERED: HYDROcodone/Acetaminophen 5/325 mg Tablet PO PRN (06:09)
[2018-03-07] MEDS ORDERED: Eucerin (Mineral Oil/Petrolatum,White) 30 gm Jar TOP PRN (06:09)
[2018-03-07] MEDS ORDERED: Calcium Carbonate 500 MG ChewTAB PO PRN (06:09)
[2018-03-07] MEDS ORDERED: Loperamide HCl 2 MG CAP PO PRN (06:09)
[2018-03-07] MEDS ORDERED: hydrALAZINE 20 MG/ML VIAL SLOW IVP PRN (06:09)
[2018-03-07] MEDS ORDERED: Loratadine 10 MG TAB PO PRN (06:09)
[2018-03-07] MEDS ORDERED: traMADol HCl 50 MG TAB PO PRN (06:09)
[2018-03-07] MEDS ORDERED: Chloraseptic Spray 180 ml Bottle PO PRN (06:09)
[2018-03-07] MEDS ORDERED: Temazepam 15 MG CAP PO PRN (06:09)
[2018-03-07] MEDS ORDERED: Milk Of Magnesia 30 ML UDCUP PO PRN (06:09)
[2018-03-07] MEDS ORDERED: Artificial Tears 18 DROP/0.9 ML EA EYE PRN (06:09)
[2018-03-07] MEDS ORDERED: Sodium Chloride 0.65% Nasal 44 ML BOT EA NARE PRN (06:09)
[2018-03-07] MEDS ORDERED: Mag-Al 1200 mg/1200 mg/30 ML UDCUP PO PRN (06:09)
[2018-03-07] MEDS ORDERED: Diabetic Tussin 200 MG/10 ML UDCUP PO PRN (06:09)
[2018-03-07] MEDS ORDERED: Amlodipine 5 MG TAB PO SCH (09:00)
[2018-03-07] MEDS: Nebivolol HCl 5 MG TAB PO SCH (09:26)
[2018-03-07] MEDS: Amlodipine 5 MG TAB PO SCH (09:26)
[2018-03-07] MEDS: Docusate 100 MG CAP PO SCH ×2 (09:26→20:24)
[2018-03-07] MEDS: Amitriptyline HCl 25 MG TAB PO SCH (09:26)
[2018-03-07] MEDS: Heparin 5,000 UNITS/ML VIAL SC SCH ×3 (09:27→20:24)
[2018-03-07] MEDS ORDERED: Nitroglycerin 0.4 MG TAB (25 Tab Bottle) SL PRN (15:52)
[2018-03-08 06:49] LABS: Anion Gap 11 mmol/L (10-20); BUN (Urea Nitrogen) 24 mg/dL (9.8-20.1); Calc. Creatinine Clearance 55 mL/min (70-130); Calcium 9.3 mg/dL (7.8-10.44); Carbon Dioxide 23 mmol/L (23-31); Chloride 110 mmol/L (98-107); Eosinophils 6 % (0-10); Estimated GFR-MDRD 45; Glucose 114 mg/dL (83-110); Hemoglobin 11.9 g/dL (12.0-16.0); Lymphocytes 47 % (21-51); MDiff Complete? YES; Mean Corpuscular Hemoglobin 26.7 pg (27.0-31.0); Mean Corpuscular Volume 83.4 fl (81.0-99.0); Mean Platelet Volume 8.2 fL (7.4-10.4); Monocytes 4 % (0-10); Neutrophil 42 % (42-75); Platelet Count 185 thou/uL (130-400); Potassium 4.1 mmol/L (3.5-5.1); Reactive Lymphocytes 1 % (0-10); Red Blood Cell (RBC) Count 4.45 mill/uL (4.20-5.40); Sodium 140 mmol/L (136-145); White Blood Cell (WBC) Count 6.4 thou/uL (4.8-10.8)
[2018-03-08] MEDS: Amlodipine 5 MG TAB PO SCH (07:57)
[2018-03-08] MEDS: Colchicine 0.6 MG TAB PO SCH (07:58)
[2018-03-08] MEDS: Furosemide 20 MG TAB PO SCH (07:59)
[2018-03-08] MEDS: Amitriptyline HCl 25 MG TAB PO SCH (07:59)
[2018-03-08] MEDS: Docusate 100 MG CAP PO SCH ×2 (08:00→20:28)
[2018-03-08] MEDS: Allopurinol 100 MG TAB PO SCH (08:00)
[2018-03-08] MEDS: Nebivolol HCl 5 MG TAB PO SCH (08:00)
[2018-03-08] MEDS: Aspirin 81 mg Enteric Coated Tablet PO SCH (08:00)
[2018-03-08] MEDS: Heparin 5,000 UNITS/ML VIAL SC SCH ×3 (09:47→20:28)
--- NOTE | 2018-03-08 10:06 | PDOC.PN ---
- Subjective Encounter Start Date: 03/08/18 Encounter Start Time: 09:10 -: old records requested/rev Patient seen and examined. No new complaints. No overnight events - Objective Resuscitation Status: Resuscitation Status FULL:Full Resuscitation MAR Reviewed: Yes Vital Signs & Weight: Vital Signs (12 hours) Temp Pulse Resp BP BP Pulse Ox 03/08/18 08:00 98.3 F 88 18 03/08/18 07:31 98.3 F 88 18 135/79 96 03/08/18 04:47 98.5 F 82 16 125/76 93 L 03/08/18 00:33 98.4 F 86 20 149/82 H 95 Weight Weight 236 lb 6 oz I&O: 03/07/18 03/08/18 03/09/18 06:59 06:59 06:59 Intake Total 0 938 Balance 0 938 Result Diagrams: 03/08/18 06:24 03/08/18 06:24 Phys Exam - Physical Examination Constitutional: NAD HEENT: PERRLA, moist MMs, sclera anicteric Neck: no JVD, supple Respiratory: no wheezing, no rales, no rhonchi Cardiovascular: RRR, no significant murmur, no rub Gastrointestinal: soft, non-tender, no distention, positive bowel sounds Musculoskeletal: no edema, pulses present Neurological: non-focal, normal sensation, moves all 4 limbs Lymphatic: no nodes Psychiatric: normal affect, A&O x 3 Skin: no rash, normal turgor Dx/Plan (1) Acute worsening of stage 3 chronic kidney disease Code(s): N18.3 - CHRONIC KIDNEY DISEASE, STAGE 3 (MODERATE) Status: Acute (2) Weakness generalized Code(s): R53.1 - WEAKNESS Status: Acute (3) CAD (coronary artery disease) Code(s): I25.10 - ATHSCL HEART DISEASE OF [place] CORONARY ARTERY W/O ANG PCTRS Status: Chronic Qualifiers: Coronary Disease-Associated Artery/Lesion type: [place] artery [place] vs. transplanted heart: [place] heart Associated angina: without angina Qualified Code(s): I25.10 - Atherosclerotic heart disease of [place] coronary artery without angina pectoris (4) COPD (chronic obstructive pulmonary disease) Status: Chronic Qualifiers: COPD type: chronic bronchitis Chronic bronchitis type: unspecified Qualified Code(s): J42 - Unspecified chronic bronchitis (5) Chronic diastolic heart failure Code(s): I50.32 - CHRONIC DIASTOLIC (CONGESTIVE) HEART FAILURE Status: Chronic (6) Chronic respiratory failure Code(s): J96.10 - CHRONIC RESPIRATORY FAILURE, UNSP W HYPOXIA OR HYPERCAPNIA Status: Chronic Qualifiers: Respiratory failure complication: hypoxia Qualified Code(s): J96.11 - Chronic respiratory failure with hypoxia (7) DM type 2 (diabetes mellitus, type 2) Status: Chronic Qualifiers: Diabetes mellitus intermediate insulin use: with director long term care use Diabetes mellitus complication status: with unspecified complications Qualified Code(s) : E11.8 - Type 2 diabetes mellitus with unspecified complications; Z79.4 - intermediate designer (current) use of insulin (8) GERD (gastroesophageal reflux disease) Code(s): K21.9 - GASTRO-ESOPHAGEAL REFLUX DISEASE WITHOUT ESOPHAGITIS Status: Chronic Qualifiers: Esophagitis presence: without esophagitis Qualified Code(s): K21.9 - Gastro -esophageal reflux disease without esophagitis (9) Gout Code(s): M10.9 - GOUT, UNSPECIFIED Status: Chronic (10) HTN (hypertension) Code(s): I10 - ESSENTIAL (PRIMARY) HYPERTENSION Status: Chronic Qualifiers: Hypertension type: essential hypertension Qualified Code(s): I10 - Essential (primary) hypertension (11) Morbid obesity Code(s): E66.01 - MORBID (SEVERE) OBESITY DUE TO EXCESS CALORIES Status: Chronic - Plan cont current plan of care, PT/OT, socially responsible investment adviser * renal function now at baseline * she needs placement * spoke with pillowcase turner about discharge plan. * medication reviewed as below * symptomatic treatment * medically stable with current treatment Review of Systems - Review of Systems Constitutional: negative: fever, chills, sweats, weakness, malaise, other Eyes: negative: Pain, Vision Change, Conjunctivae Inflammation, Eyelid Inflammation, Redness, Other ENT: negative: Ear Pain, Ear Discharge, Nose Pain, Nose Discharge, Nose Congestion, Mouth Pain, Mouth Swelling, Throat Pain, Throat Swelling, Other Respiratory: negative: Cough, Dry, Shortness of Breath, Hemoptysis, SOB with Excertion, Pleuritic Pain, Sputum, Wheezing Cardiovascular: negative: chest pain, palpitations, orthopnea, paroxysmal nocturnal dyspnea, edema, light headedness, other Gastrointestinal: negative: Nausea, Vomiting, Abdominal Pain, Diarrhea, Constipation, Melena, Hematochezia, Other Genitourinary: negative: Dysuria, Frequency, Incontinence, Hematuria, Retention , Other Musculoskeletal: negative: Neck Pain, Shoulder Pain, Arm Pain, Back Pain, Hand Pain, Leg Pain, Foot Pain, Other Skin: negative: Rash, Lesions, Calvin, Bruising, Other - Medications/Allergies Allergies/Adverse Reactions: Allergies Allergy/AdvReac Type Severity Reaction Status Date / Time ibuprofen Allergy Intermediate Rash Verified 12/18/17 23:42 levofloxacin [From Levaquin] Allergy Intermediate Rash Verified 12/18/17 23:42 Medications: Current Medications Acetaminophen (Tylenol) 650 mg PO Q4H PRN PRN Reason: Headache/Fever or Pain Hydrocodone Bitart/Acetaminophen ([place] 5/325) 1 tab PO Q4H PRN PRN Reason: Moderate Pain (4-6) Al Hydroxide/Mg Hydroxide (Maalox) 15 ml PO Q4H PRN PRN Reason: Heartburn or Indigestion Allopurinol (Zyloprim) 100 mg PO DAILY [facility] Last Admin: 03/08/18 08:00 Dose: 100 mg Amitriptyline HCl (Elavil) 25 mg PO DAILY [facility] Last Admin: 03/08/18 07:59 Dose: 25 mg Amlodipine Besylate (Norvasc) 5 mg PO DAILY [facility] Last Admin: 03/08/18 07:57 Dose: 5 mg Artificial Tears (Tears Naturale) 0 drop EA EYE PRN PRN PRN Reason: Dry Eyes Aspirin (Ecotrin) 81 mg PO DAILY [facility] Last Admin: 03/08/18 08:00 Dose: 81 mg Calcium Carbonate (Tums) 1,000 mg PO Q4H PRN PRN Reason: Heartburn or Indigestion Clonidine (Catapres) 0.1 mg PO Q4H PRN PRN Reason: SBP GREATER THAN 160 Colchicine (Colcrys) 0.6 mg PO DAILY [facility] Last Admin: 03/08/18 07:58 Dose: 0.6 mg Docusate Sodium (Colace) 100 mg PO BID [facility] Last Admin: 03/08/18 08:00 Dose: 100 mg Furosemide (Lasix) 20 mg PO DAILY [facility] Last Admin: 03/08/18 07:59 Dose: 20 mg Guaifenesin (Robitussin Sf) 200 mg PO Q4H PRN PRN Reason: Cough Heparin Sodium (Porcine) (Heparin) 5,000 units SC TID [facility] Last Admin: 03/08/18 09:47 Dose: 5,000 units Hydralazine HCl (Apresoline) 10 mg SLOW IVP Q4H PRN PRN Reason: Systolic BP > 180 Labetalol HCl (Normodyne) 5 mg SLOW IVP Q6H PRN PRN Reason: SBP GREATER THAN 160 Loperamide HCl (Imodium) 2 mg PO PRN PRN PRN Reason: Diarrhea/Loose Stools Loratadine (Claritin) 10 mg PO DAILYPRN PRN PRN Reason: Sinus Symptoms Magnesium Hydroxide (Milk Of Magnesium) 30 ml PO DAILYPRN PRN PRN Reason: Constipation Mineral Oil/White Petrolatum (Eucerin Cream) 0 gm TOP BIDPRN PRN PRN Reason: Dry Skin Montelukast Sodium (Singulair) 10 mg PO QPM [facility] Nebivolol (Bystolic) 5 mg PO DAILY [facility] Last Admin: 03/08/18 08:00 Dose: 5 mg Nitroglycerin (Nitrostat) 0.4 mg SL Q5MIN PRN PRN Reason: Chest Pain Pantoprazole Sodium (Protonix) 40 mg PO DAILY [facility] Last Admin: 03/08/18 07:59 Dose: 40 mg Phenol (Chloraseptic [place] 180 Ml Bot) 0 ml PO PRN PRN PRN Reason: Sore Throat Sodium Chloride ([place] Nasal [place] 0.65%) 0 ml EA NARE QIDPRN PRN PRN Reason: Nasal Congestion Temazepam (Restoril) 15 mg PO HSPRN PRN PRN Reason: Insomnia Tramadol HCl (Ultram) 50 mg PO Q4H PRN PRN Reason: Moderate Pain (4-6) Last Admin: 03/07/18 09:26 Dose: 50 mg
[2018-03-08] MEDS ORDERED: Fentanyl 100 MCG/2 ML VIAL ONE (10:22)
[2018-03-08] MEDS ORDERED: Montelukast Sodium 10 mg Tablet PO SCH (21:00)
[2018-03-08] MEDS ORDERED: Ziprasidone 20 MG VIAL ONE (23:14)
[2018-03-08] MEDS ORDERED: Sterile Water 10 ML VIAL FS SCH (23:30)
[2018-03-08] MEDS ORDERED: Ziprasidone 20 MG VIAL IM SCH (23:30)
[2018-03-09 07:49] VITALS: BP 145/83; TEMP 98
[2018-03-09] MEDS: Allopurinol 100 MG TAB PO SCH (09:23)
[2018-03-09] MEDS: Nebivolol HCl 5 MG TAB PO SCH (09:23)
[2018-03-09] MEDS: Amlodipine 5 MG TAB PO SCH (09:24)
[2018-03-09] MEDS: Amitriptyline HCl 25 MG TAB PO SCH (09:24)
[2018-03-09] MEDS: Heparin 5,000 UNITS/ML VIAL SC SCH (09:24)
[2018-03-09] MEDS: Colchicine 0.6 MG TAB PO SCH (09:24)
[2018-03-09] MEDS: Aspirin 81 mg Enteric Coated Tablet PO SCH (09:24)
[2018-03-09] MEDS: Docusate 100 MG CAP PO SCH (09:24)
[2018-03-09] MEDS: Furosemide 20 MG TAB PO SCH (09:24)
== END 2018-03-09 19:20 | disposition home or self-care (01) | DRG 683 ==
LOC: ERS 13:18 → 2NO 18:38 → T4-A 03-07 11:12
PROVIDERS: ADMIT Family Medicine; ATTEND Family Medicine
DX: N17.9 Acute kidney failure, unspecified (principal); J96.10 Chronic respiratory failure, unspecified whether with hypoxia or hypercapnia; I13.0 Hypertensive heart and chronic kidney disease with heart failure and stage 1 through stage 4 chronic kidney disease, or unspecified chronic kidney disease; I50.32 Chronic diastolic (congestive) heart failure; E11.22 Type 2 diabetes mellitus with diabetic chronic kidney disease; E66.01 Morbid (severe) obesity due to excess calories; N18.3 Chronic kidney disease, stage 3 (moderate); I25.10 Atherosclerotic heart disease of native coronary artery without angina pectoris; J44.9 Chronic obstructive pulmonary disease, unspecified; K21.9 Gastro-esophageal reflux disease without esophagitis; M10.9 Gout, unspecified; F03.90 Unspecified dementia, unspecified severity, without behavioral disturbance, psychotic disturbance, mood disturbance, and anxiety
CPT/HCPCS: 36415; 36416; 51701; 70450; 74177; 80048; 80053; 81003; 82550; 82553; 83880; 84484; 85025; 93005; 96374; 96375; A4216; A4353; G8978-GP-CL; G8979-GP-CJ; G8987-GO-CJ; G8988-GO-CI; J1630; J1644; J2060; J3010; J3486

== ENCOUNTER 2018-07-12 21:14 | Emergency (ER) | payer MEDICARE, OTHER ==
[2018-07-12 22:06] LABS: Hemoglobin 13.9 g/dL (12.0-16.0); Mean Corpuscular HGB CONC 31.9 g/dL (32.0-36.0); Mean Corpuscular Hemoglobin 25.8 pg (27.0-31.0); Mean Corpuscular Volume 80.8 fL (78.0-98.0); Platelet Count 183 thou/uL (130-400); RBC Distribution Width 15.9 % (11.5-14.5); Red Blood Cell (RBC) Count 5.41 mill/uL (4.20-5.40); White Blood Cell (WBC) Count 6.4 thou/uL (4.8-10.8)
--- NOTE | 2018-07-12 22:15 | RAD ---
RADIOGRAPH CHEST 1 VIEW: Supine 07/12/2018 9:59 p.m. HISTORY: An 83-year-old female with dyspnea. FINDINGS: There is no air space density or pulmonary edema. The lateral costophrenic angles are sharp. Supine positioning makes this study insensitive for pneumothorax detection. IMPRESSION: No acute pulmonary findings. ayo [] POS: SAMARIA
[2018-07-12 22:23] LABS: Band 5 % (5-11); Lymphocytes 4 % (21-51); MDiff Complete? YES; Monocytes 4 % (0-10); Neutrophil 87 % (42-75)
[2018-07-12 22:27] LABS: ALT (SGPT) 18 U/L (8-55); AST (SGOT) 23 U/L (5-34); Albumin 4.2 g/dL (3.4-4.8); Alkaline Phosphatase 106 U/L (40-150); Anion Gap 13 mmol/L (10-20); BUN (Urea Nitrogen) 17 mg/dL (9.8-20.1); Bilirubin, Total 0.4 mg/dL (0.2-1.2); Calc. Creatinine Clearance 0 mL/min (70-130); Calcium 9.8 mg/dL (7.8-10.44); Carbon Dioxide 25 mmol/L (23-31); Chloride 104 mmol/L (98-107); Estimated GFR-MDRD 49; Globulin 3.2 g/dL (2.4-3.5); Glucose 145 mg/dL (83-110); Lipase 15 U/L (8-78); Potassium 4.5 mmol/L (3.5-5.1); Protein, Total 7.4 g/dL (6.0-8.3); Sodium 137 mmol/L (136-145)
[2018-07-12 22:49] LABS: Bilirubin Negative (Negative); Blood, Urine Negative (Negative); Clarity CLEAR (Clear); Glucose, Urine (Dipstick) Negative (Negative); Leukocyte Negative (Negative); Nitrite Negative (Negative); Protein, Urine (Dipstick) 100 mg/dL (Neg-Trace); Specific Gravity, Urine 1.023 (1.002-1.036); Urobilinogen 0.2 mg/dL (0.2-1.0); pH, Urine 5.5 (5.0-9.0)
[2018-07-12 22:51] LABS: Bacteria/HPF None Seen HPF (None Seen); Hyaline Casts/LPF 0-3 HYALINE CAST LPF (0-3 Hyaline); Pathc Cast-AUWi Flag 0.14 (0-2.49); RBC/HPF 0-3 HPF (0-3); Squamous Epithelial 0-3 HPF (0-3); WBC/HPF None Seen HPF (0-3)
[2018-07-12] MEDS ORDERED: hydrALAZINE 20 MG/ML VIAL ONE (23:08)
--- NOTE | 2018-07-12 23:57 | CT ---
CT ABDOMEN NONCONTRAST CT PELVIS NONCONTRAST: (urolithiasis protocol) DATE: 07/12/2018 TIME: 11:39 p.m. HISTORY: An 83-year-old female with generalized abdominal pain, nausea, and emesis. Diarrhea. COMPARISON: 03/06/2018 TECHNIQUE: IV injection of iodinated contrast media: none Oral contrast media: none FINDINGS: Other than for urolithiasis, the lack of IV and oral contrast limits the evaluation. Again noted is the fat-containing ventral hernia. There are no renal, ureteral or bladder calculi. No hydronephrosis. Bilateral upper pole renal cortical exophytic cysts. Severe central spinal canal stenosis at L4-L5 due to grade 1 spondylolisthesis that is due to severe bilateral facet DJD. Fluid -filled, nondilated loops of small intestine and colon throughout the abdomen. Small sliding hiatal hernia. Cholecystectomy clips in the gallbladder fossa. No ascites or pneumoperitoneum. Within the limitations of a noncontrast scan, no gross pathology identified involving the urinary bladder, the abdominal aorta, the liver, the pancreas, the adrenals, or the spleen. There is no evidence of colon ic diverticulitis. No interval change since the prior CT. IMPRESSION: 1. No evidence of bowel obstruction. 2. Fluid throughout the lumen of the colon and the small intestine, suggestive of gastroenteritis. 3. No urolithiasis or obstructive uropathy. 4. Status post cholecystectomy. 5. Severe central spinal canal stenosis at L4-L5 due to grade 1 spondylolisthesis and severe bilater al facet osteoarthrosis. MARTHA Mckeon POS: SAMARIA
== END 2018-07-13 01:43 | disposition home or self-care (01) ==
LOC: ERS 21:14
DX: R11.2 Nausea with vomiting, unspecified (principal); R19.7 Diarrhea, unspecified; I11.0 Hypertensive heart disease with heart failure; I50.9 Heart failure, unspecified; E11.9 Type 2 diabetes mellitus without complications; K21.9 Gastro-esophageal reflux disease without esophagitis; E78.5 Hyperlipidemia, unspecified; J45.909 Unspecified asthma, uncomplicated; F03.90 Unspecified dementia, unspecified severity, without behavioral disturbance, psychotic disturbance, mood disturbance, and anxiety
CPT/HCPCS: 36415; 51701; 71045; 74176; 80053; 81003; 81015; 83690; 85025; 93005; 96361; 96374; A4353; J0360

== ENCOUNTER 2018-07-18 17:18 | Observation (INO) | payer MEDICARE, MEDICAID ==
--- NOTE | 2018-07-18 18:05 | RAD ---
PORTABLE CHEST: Date: 07-18-18 Provided Clinical History: Fall. Hit left shoulder, possible dislocation. FINDINGS: Comparison is made with the study dated 07-12-18. Evaluation is limited by patient body habitus. The cardiac silhouette remains enlarged. No focal cons olidation, pleural fluid, or pneumothorax apparent. The osseous structures demonstrate a probable per iprosthetic fracture involving the left proximal humeral metadiaphyseal region. See separately dictat ed left shoulder radiographs. IMPRESSION: 1. Cardiomegaly without evidence for an acute cardiopulmonary process. 2. Probable nondisplaced periprosthetic left proximal humeral fracture. See separately dictated left shoulder radiograph report. POS: [facility]
--- NOTE | 2018-07-18 18:07 | RAD ---
LEFT SHOULDER RADIOGRAPHS THREE VIEWS: Date: 07-18-18 Provided Clinical History: Left shoulder pain status post injury. FINDINGS: Comparison 06-26-15. 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 There is a minimally displac ed obliquely oriented fracture of the left proximal humeral metadiaphyseal region about the humeral c omponent. The glenohumeral relationship appears normal. No additional fracture is evident. Acromiocla vicular joint osteoarthrosis changes are seen. IMPRESSION: 1. Nondisplaced periprosthetic left proximal humeral metadiaphyseal region fracture. POS: [facility]
[2018-07-18 18:12] LABS: #Eosinphils 0.1 thou/uL (0.0-0.7); #Lymphocytes 2.2 thou/uL (1.20-3.40); #Monocytes 0.9 thou/uL (0.11-0.59); #Neutrophils 4.3 thou/uL (1.40-6.50); %Basophils 0.6 % (0.0-1.0); %Eosinophils 1.7 % (0.0-10.0); %Lymphocytes 28.7 % (21.0-51.0); %Neutrophils 57.1 % (42.0-75.0); Hemoglobin 12.4 g/dL (12.0-16.0); Mean Corpuscular HGB CONC 31.3 g/dL (32.0-36.0); Mean Corpuscular Hemoglobin 25.8 pg (27.0-31.0); Mean Corpuscular Volume 82.6 fL (78.0-98.0); Platelet Count 165 thou/uL (130-400); Red Blood Cell (RBC) Count 4.78 mill/uL (4.20-5.40); White Blood Cell (WBC) Count 7.5 thou/uL (4.8-10.8)
[2018-07-18 18:32] LABS: ALT (SGPT) 19 U/L (8-55); AST (SGOT) 20 U/L (5-34); Albumin 3.9 g/dL (3.4-4.8); Alkaline Phosphatase 107 U/L (40-150); Anion Gap 13 mmol/L (10-20); BUN (Urea Nitrogen) 20 mg/dL (9.8-20.1); Bilirubin, Total 0.3 mg/dL (0.2-1.2); Calc. Creatinine Clearance 0 mL/min (70-130); Calcium 9.7 mg/dL (7.8-10.44); Carbon Dioxide 23 mmol/L (23-31); Chloride 109 mmol/L (98-107); Estimated GFR-MDRD 41; Globulin 3.1 g/dL (2.4-3.5); Glucose 98 mg/dL (83-110); Sodium 141 mmol/L (136-145)
[2018-07-18 18:37] LABS: CKMB 2.9 ng/mL (0-6.6); Troponin I Less than 0.010 ng/mL (< 0.028)
[2018-07-18 22:36] LABS: Bilirubin Negative (Negative); Blood, Urine Negative (Negative); Clarity CLEAR (Clear); Glucose, Urine (Dipstick) Negative (Negative); Leukocyte Small (Negative); Nitrite Negative (Negative); Protein, Urine (Dipstick) 100 mg/dL (Neg-Trace); Specific Gravity, Urine 1.025 (1.002-1.036); Urobilinogen 0.2 mg/dL (0.2-1.0)
[2018-07-18 22:38] LABS: Bacteria/HPF Rare-Few HPF (None Seen); Hyaline Casts/LPF 7-10 HYALINE CAST LPF (0-3 Hyaline); Pathc Cast-AUWi Flag 1.01 (0-2.49); RBC/HPF 0-3 HPF (0-3); WBC/HPF 21-50 HPF (0-3)
[2018-07-18] MEDS ORDERED: cefTRIAXone\\ROCEPHIN 1 GM VIAL ONE (23:56)
[2018-07-18] MEDS ORDERED: Acetaminophen 500 MG TAB ONE (23:56)
[2018-07-19] MEDS ORDERED: Ondansetron HCl/PF 4 MG/2 ML Vial IVP PRN (01:04)
[2018-07-19] MEDS ORDERED: Acetaminophen 325 MG TAB PO PRN (01:04)
[2018-07-19] MEDS ORDERED: Ondansetron ODT 4 MG TAB SL PRN (01:04)
[2018-07-19 01:11] VITALS: BMI 43.4
[2018-07-19] MEDS ORDERED: Insulin Regular 300 UNITS/3 ML VIAL SC PRN (01:29)
[2018-07-19] MEDS ORDERED: HumaLOG 300 UNITS/3 ML VIAL SC PRN (01:29)
[2018-07-19] MEDS ORDERED: Dextrose 5% in Water 1,000 ML IV PRN (01:29)
[2018-07-19] MEDS ORDERED: Dextrose 50% Abboject 50 ML SYRINGE SLOW IVP PRN (01:29)
[2018-07-19] MEDS ORDERED: Sodium Chloride 0.9% 1,000 ML IV SCH (03:15)
--- NOTE | 2018-07-19 04:45 | HP ---
CHIEF COMPLAINT: Dizziness and fall. HISTORY OF PRESENT ILLNESS: This is an 83-year-old -[place]e woman with past medical history of diabetes mellitus, hypertension, COPD, heart failure with preserved ejection fraction, COPD on home O2, CAD, presented with syncope. Per the patient, every time when she gets up she gets dizzy and because of her dizziness, she falls. Today, the patient stated that she got up, got dizzy and she fell on her left shoulder and the left shoulder is painful. Per the patient, she has been experiencing this dizzy spell for a while now about a week approximately. The patient stated that now her left shoulder really hurts and on a pain scale it is about 5/10 now on the pain scale. REVIEW OF SYSTEMS: Positive for weakness, pain in the left shoulder. Otherwise , as documented in the HPI. All systems are reviewed and are negative. PAST MEDICAL HISTORY: Refer to HPI. PAST SURGICAL HISTORY: The patient had carpal tunnel syndrome surgery, left eye surgery, bilateral knee replacement, new lens in right eye. PSYCHIATRIC HISTORY: The patient is alert, oriented x2. The patient seemed to have some sort of dementia. FAMILY HISTORY: Reviewed and noncontributory. SOCIAL HISTORY: The patient lives with daughter. The patient denies alcohol use. The patient denies drug use. The patient denies being a current smoker. The patient is a former tobacco smoker, but not now. KNOWN ALLERGIES: LEVAQUIN, patient gets a rash. MOTRIN, patient gets a rash. CURRENT MEDICATIONS: The patient does not remember her medications at that time , is not known, which medication patient is on. We will find out with the patient's medication by calling the patient's pharmacy or daughter to bring patient medications list. PHYSICAL EXAMINATION: VITAL SIGNS: Blood pressure is 168/85, pulse is 76, respiratory rate of 18, temperature 98.3, O2 sat is 98. GENERAL: The patient is sitting in the chair, does not appear to be in any distress. The patient is speaking in full sentences. HEENT: Normocephalic, atraumatic. Pupils are equally round and reactive to light. Extraocular movements are intact. No scleral icterus. Trachea is midline. NECK: No JVD. CARDIOVASCULAR: Positive S1, S2. Regular rate and rhythm. No murmurs, no gallops or rubs appreciated. RESPIRATORY: Lungs clear to auscultation bilaterally. No wheezing, no rales, no rhonchi. BACK: No step-offs or deformities. No tender to palpation. EXTREMITIES: Upper extremity: The patient has left upper extremity tenderness to palpation. Range of motions is restricted. There is 2/4 distal pulses. Lower extremity: 2/4 distal pulses. No abnormalities noted. NEUROLOGIC: Cranial nerves II-XII grossly intact. Full range of motion at the neck. The patient has restriction of motion at the left shoulder. PSYCHIATRIC: Normal affect. ED COURSE: In the ED, the patient was given Rocephin injection 1 gram, Tylenol extra strength 1 gram. Chest x-ray showed cardiomegaly with evidence for an acute cardiopulmonary process, probably nondisplaced prosthetic left proximal humerus fracture. Shoulder x-ray, nondisplaced, prosthetic left proximal humerus mid diaphyseal region fracture. LABORATORY DATA: WBC 7.5, hemoglobin is 12.4, hematocrit is 39.5, MCV 82.6, RDW 16.0. Electrolytes: Sodium is 141, potassium 4.0, chloride 109, bicarb is 23, creatinine is 1.48. Urinalysis: The patient has small esterase. ASSESSMENT AND PLAN: 1. This is an 83-year-old female presenting with dizziness and syncopal episodes. At this point, we have ordered orthostatics. We will follow up orthostatics. We will continue patient on IV fluids. We will evaluate patient on her home medications and adjust patient's medication as necessary to prevent further orthostatics if the patient's medication what is causing orthostatics and dizziness. 2. Acute on chronic kidney disease. The patient's creatinine is 1.48 and patient's acute kidney injury is most likely prerenal in etiology. We will continue patient on gentle hydration. 3. History of diabetes mellitus. We will continue sliding scale. We will monitor the patient's glucose. 4. History of hypertension. Continue current management. 5. Chronic obstructive pulmonary disease. We will continue patient on current management. 6. Heart failure with preserved ejection fraction. We will monitor the patient closely. 7. Coronary artery disease. We will continue current medications. We will start the patient on her home medications. MTDD
[2018-07-19 05:09] LABS: #Eosinphils 0.1 thou/uL (0.0-0.7); #Lymphocytes 3.4 thou/uL (1.20-3.40); #Monocytes 0.5 thou/uL (0.11-0.59); #Neutrophils 3.4 thou/uL (1.40-6.50); %Eosinophils 1.5 % (0.0-10.0); %Lymphocytes 45.7 % (21.0-51.0); %Monocytes 7.1 % (0.0-10.0); %Neutrophils 45.8 % (42.0-75.0); Hemoglobin 12.5 g/dL (12.0-16.0); Mean Corpuscular HGB CONC 30.8 g/dL (32.0-36.0); Mean Corpuscular Hemoglobin 25.2 pg (27.0-31.0); Mean Platelet Volume 9.9 fL (7.4-10.4); Platelet Count 179 thou/uL (130-400); RBC Distribution Width 16.2 % (11.5-14.5); Red Blood Cell (RBC) Count 4.95 mill/uL (4.20-5.40); White Blood Cell (WBC) Count 7.5 thou/uL (4.8-10.8)
[2018-07-19 05:32] LABS: Albumin 3.9 g/dL (3.4-4.8); Anion Gap 14 mmol/L (10-20); BUN (Urea Nitrogen) 20 mg/dL (9.8-20.1); BUN/Creatinine Ratio 15.87; Calc. Creatinine Clearance 58 mL/min (70-130); Calcium 9.7 mg/dL (7.8-10.44); Carbon Dioxide 21 mmol/L (23-31); Chloride 110 mmol/L (98-107); Estimated GFR-MDRD 49; Glucose 67 mg/dL (83-110); Phosphorus 2.6 mg/dL (2.3-4.7); Potassium 3.8 mmol/L (3.5-5.1); Sodium 141 mmol/L (136-145)
[2018-07-19] MEDS ORDERED: Famotidine/PF 20 mg/2ml Vial SLOW IVP SCH (09:00)
--- NOTE | 2018-07-19 14:58 | PDOC.PN ---
- Subjective Encounter Start Date: 07/19/18 Encounter Start Time: 14:55 Ms. Narayan was seen in follow-up of pre-syncope and left shoulder pain. she still gets dizzy when she stands. This has been an on-going problem for years.She also notes a very painful left shoulder. - Objective Resuscitation Status: Resuscitation Status FULL:Full Resuscitation MAR Reviewed: Yes Vital Signs & Weight: Vital Signs (12 hours) Temp Pulse Pulse Pulse Resp BP BP 07/19/18 11:30 98.2 F 72 20 07/19/18 10:01 73 73 184/80 H 202/83 H 07/19/18 07:52 98.2 F 69 20 07/19/18 07:36 98.0 F 59 L 16 07/19/18 05:45 BP BP BP Pulse Ox 07/19/18 11:30 181/87 H 96 07/19/18 10:01 07/19/18 07:52 07/19/18 07:36 138/65 94 L 07/19/18 05:45 174/81 H 171/70 H 175/80 H Weight Weight 229 lb 9.6 oz I&O: 07/18/18 07/19/18 07/20/18 06:59 06:59 06:59 Intake Total 206 480 Output Total 400 Balance 206 80 Result Diagrams: 07/19/18 04:26 07/19/18 04:26 Additional Labs: Accuchecks 07/19/18 07/19/18 11:27 06:26 POC Glucose 93 69 L Phys Exam - Physical Examination HEENT: PERRLA Respiratory: no wheezing, no rales, no rhonchi, clear to auscultation bilateral Cardiovascular: RRR, no significant murmur, no rub Gastrointestinal: soft, non-tender, no distention, positive bowel sounds Musculoskeletal: no edema + point tenderness on the left shoulder, and just distal Neurological: non-focal, moves all 4 limbs Dx/Plan (1) Pre-syncope Status: Acute (2) [id number] kidney injury Code(s): N17.9 - ACUTE KIDNEY FAILURE, UNSPECIFIED; N18.9 - CHRONIC KIDNEY DISEASE, UNSPECIFIED Status: Acute (3) Fracture of humerus, proximal, left, closed Code(s): S42.202A - UNSP FRACTURE OF UPPER END OF LEFT HUMERUS, INIT FOR CLOS FX Status: Acute (4) COPD (chronic obstructive pulmonary disease) Status: Chronic Qualifiers: COPD type: chronic bronchitis Chronic bronchitis type: unspecified Qualified Code(s): J42 - Unspecified chronic bronchitis (5) HTN (hypertension) Code(s): I10 - ESSENTIAL (PRIMARY) HYPERTENSION Status: Chronic Qualifiers: Hypertension type: essential hypertension Qualified Code(s): I10 - Essential (primary) hypertension (6) DM type 2 (diabetes mellitus, type 2) Status: Chronic Qualifiers: Diabetes mellitus intermediate designer insulin use: with intermediate designer use Diabetes mellitus complication status: with unspecified complications Qualified Code(s) : E11.8 - Type 2 diabetes mellitus with unspecified complications; Z79.4 - MCC (current) use of insulin - Plan * Pre-syncope and dizziness- this is a chronic problem. in review of her records it has been evaluated in the past. I suspect it was worse this time, as a result of volume depletion * Acute on chronic kidney injury- improved with hydration * Left Proximal Humerus fracture- discussed with the Orthopedic Surgeon leasing professional. Will place in a sling, and pain control. He will evaluate her tomorrow * HTN- blood pressure is elevated, and this may be due to pain- but will also need to re-start her home medications * COPD- stable * CAD- stable.
[2018-07-19] MEDS: traMADol HCl 50 MG TAB PO PRN (16:24)
[2018-07-19] MEDS: Enoxaparin Sodium 30 MG/0.3 ML SYRINGE SC SCH (16:29)
[2018-07-19] MEDS ORDERED: Allopurinol 100 MG TAB PO SCH (17:30)
[2018-07-19] MEDS ORDERED: Aspirin 81 mg Enteric Coated Tablet PO SCH (17:30)
[2018-07-19] MEDS ORDERED: Amlodipine 5 MG TAB PO SCH (17:30)
[2018-07-19] MEDS ORDERED: Amitriptyline HCl 25 MG TAB PO SCH (17:30)
[2018-07-19] MEDS: cloNIDine 0.1 MG TAB PO PRN (18:26)
[2018-07-19] MEDS: Montelukast Sodium 10 mg Tablet PO SCH (20:33)
[2018-07-19] MEDS: Famotidine 20 MG TAB PO SCH (20:34)
[2018-07-19] MEDS: Colchicine 0.6 MG TAB PO SCH (20:34)
[2018-07-20] MEDS: cloNIDine 0.1 MG TAB PO PRN ×2 (00:45→18:25)
[2018-07-20] MEDS: Amlodipine 5 MG TAB PO SCH (08:30)
[2018-07-20] MEDS: Amitriptyline HCl 25 MG TAB PO SCH (08:32)
[2018-07-20] MEDS: Allopurinol 100 MG TAB PO SCH (08:32)
[2018-07-20] MEDS: Famotidine 20 MG TAB PO SCH ×2 (08:32→20:42)
[2018-07-20] MEDS: Colchicine 0.6 MG TAB PO SCH ×2 (08:32→20:42)
[2018-07-20] MEDS ORDERED: Prevnar 13-Val Conj/PF 0.5 ML SYRINGE IM ONE (09:00)
[2018-07-20] MEDS: Enoxaparin Sodium 30 MG/0.3 ML SYRINGE SC SCH (10:49)
[2018-07-20] MEDS: Aspirin 81 mg Enteric Coated Tablet PO SCH (10:54)
--- NOTE | 2018-07-20 11:23 | CON ---
DATE OF CONSULTATION: 07/20/2018 CHIEF COMPLAINT: Left arm pain. HISTORY OF PRESENT ILLNESS: Ms. Narayan is an 83-year-old female who fell several days ago. She l anded on her left side, catching herself with her left arm. She had pain in shoulder and upper arm. She was admitted to the hospital subsequent to that for dizziness and workup for possible syncope. Orthopedics was consulted regarding her left shoulder. X-rays were obtained which demonstrated a rev erse shoulder arthroplasty with a periprosthetic humeral fracture proximally. She has been resting i n a sling. She has had adequate pain control. PAST MEDICAL HISTORY: Diabetes mellitus, hypertension, COPD, congestive heart failure, and syncope. PAST SURGICAL HISTORY: Carpal tunnel release, left reverse shoulder arthroplasty, bilateral total kn ee arthroplasty, cataract surgery in the right eye. PSYCHIATRIC HISTORY: Negative. FAMILY MEDICAL HISTORY: Noncontributory. SOCIAL HISTORY: The patient denies tobacco, alcohol, or drug use. ALLERGIES: LEVAQUIN and MOTRIN. PHYSICAL EXAMINATION: VITAL SIGNS: Temperature is 97.7, pulse is 72, respiratory rate 16, 96% on room air, blood pressure 138/84. GENERAL: She is lying supine in no apparent distress. HEENT: Normocephalic, atraumatic. RESPIRATORY: Breathing comfortably. ABDOMEN: Soft, nontender, nondistended. CARDIOVASCULAR: Distal pulses are palpable and regular. MUSCULOSKELETAL: The left upper extremity has pain with motion. There is some swelling and faint ec chymosis. She is tender to palpation over the proximal humerus and with motion. She is neurovascula rly intact in the hand and wrist. She has a palpable radial pulse. Sling is in place. IMAGING DATA: X-rays demonstrate a left reverse shoulder arthroplasty. There is a periprosthetic hu meral fracture with minimal displacement near the middle aspect of the humeral stem. The stem does n ot appear appreciably loose. The fracture is reduced well. IMPRESSION: Left periprosthetic humerus fracture. PLAN: At this point, I discussed with the patient her treatment. We will continue a sling and pain control for now. I think she could be treated nonoperatively for this and hopefully her fracture jatinder l heal. If she had worsening alignment or evidence of stem loosening, she possibly would require a r evision or open reduction and internal fixation of the fracture. She can follow up with Dr. Fitzgerald in the outpatient setting for further care. No surgical indication for now.
--- NOTE | 2018-07-20 15:38 | PDOC.PN ---
- Subjective Encounter Start Date: 07/20/18 Encounter Start Time: 15:36 Ms. Narayan was seen today in follow-up of dizziness, and left humerus fracture. She continues to have some pain in the left shoulder, but says she is not dizzy at this time. It was reported by staff that she was very weak during PT. - Objective Resuscitation Status: Resuscitation Status FULL:Full Resuscitation MAR Reviewed: Yes Vital Signs & Weight: Vital Signs (12 hours) Temp Pulse Resp BP BP Pulse Ox 07/20/18 12:04 98.3 F 84 20 143/76 H 94 L 07/20/18 11:25 72 16 156/71 H 07/20/18 08:30 98.3 F 84 20 204/108 H 07/20/18 07:47 97.3 F L 69 18 204/108 H 95 07/20/18 04:18 97.7 F 72 16 138/84 96 Weight Weight 232 lb 11.2 oz I&O: 07/19/18 07/20/18 07/21/18 06:59 06:59 06:59 Intake Total 206 1540 960 Output Total 800 Balance 206 740 960 Result Diagrams: 07/19/18 04:26 07/19/18 04:26 Additional Labs: Accuchecks 07/20/18 07/20/18 07/19/18 11:35 05:33 20:23 POC Glucose 115 H 89 130 H 07/19/18 17:10 POC Glucose 105 Phys Exam - Physical Examination HEENT: PERRLA Respiratory: no wheezing, no rales, no rhonchi, clear to auscultation bilateral Cardiovascular: RRR, no significant murmur, no rub no gallop Gastrointestinal: soft, non-tender, no distention, positive bowel sounds Musculoskeletal: no edema Dx/Plan (1) Pre-syncope Status: Acute (2) Nqrax-[id number]-[id number] kidney injury Code(s): N17.9 - ACUTE KIDNEY FAILURE, UNSPECIFIED; N18.9 - CHRONIC KIDNEY DISEASE, UNSPECIFIED Status: Acute (3) Fracture of humerus, proximal, left, closed Code(s): S42.A - UNSP FRACTURE OF UPPER END OF LEFT HUMERUS, INIT FOR CLOS FX Status: Acute (4) COPD (chronic obstructive pulmonary disease) Status: Chronic Qualifiers: COPD type: chronic bronchitis Chronic bronchitis type: unspecified Qualified Code(s): J42 - Unspecified chronic bronchitis (5) HTN (hypertension) Code(s): I10 - ESSENTIAL (PRIMARY) HYPERTENSION Status: Chronic Qualifiers: Hypertension type: essential hypertension Qualified Code(s): I10 - Essential (primary) hypertension (6) DM type 2 (diabetes mellitus, type 2) Status: Chronic Qualifiers: Diabetes mellitus chcf insulin use: with terminal system operator use Diabetes mellitus complication status: with unspecified complications Qualified Code(s) : E11.8 - Type 2 diabetes mellitus with unspecified complications; Z79.4 - [facility] (current) use of insulin (7) Physical deconditioning Code(s): R53.81 - OTHER MALAISE Status: Acute - Plan * Pre-syncope and dizziness- chronic and stable * Left humerus fracture- will continue with non-surgical management-and continue with Sling and pain control * Acute on chronic kidney injury- improved. * Deconditioned- will have PT/OT to evaluate, and she may need evaluation for group home or rehab
[2018-07-20] MEDS: Montelukast Sodium 10 mg Tablet PO SCH (20:42)
--- NOTE | 2018-07-21 09:06 | PDOC.PN ---
- Subjective Encounter Start Date: 07/21/18 Encounter Start Time: 08:58 Ms. Narayan was seen today in follow-up of dizziness and left humerus fracture. She notes some continued pain in the left arm, no other complaints. - Objective Resuscitation Status: Resuscitation Status FULL:Full Resuscitation MAR Reviewed: Yes Vital Signs & Weight: Vital Signs (12 hours) Temp Pulse Resp BP BP Pulse Ox 07/21/18 08:00 98.1 F 71 18 07/21/18 07:51 98.1 F 71 18 120/79 98 07/21/18 04:05 98.0 F 68 16 169/77 H 97 07/20/18 23:28 97.8 F 70 20 170/80 H 98 Weight Weight 236 lb 8 oz I&O: 07/20/18 07/21/18 07/22/18 06:59 06:59 06:59 Intake Total 1540 1920 Output Total 800 Balance 740 1920 Result Diagrams: 07/19/18 04:26 07/19/18 04:26 Additional Labs: Accuchecks 07/21/18 07/20/18 07/20/18 07:09 19:57 16:25 POC Glucose 90 118 H 110 07/20/18 11:35 POC Glucose 115 H Phys Exam - Physical Examination HEENT: PERRLA Respiratory: no wheezing, no rales, no rhonchi, clear to auscultation bilateral Cardiovascular: RRR, no significant murmur, no rub no gallop Gastrointestinal: soft, non-tender, no distention, positive bowel sounds Musculoskeletal: no edema Dx/Plan (1) Pre-syncope Status: Acute (2) [id number] kidney injury Code(s): N17.9 - ACUTE KIDNEY FAILURE, UNSPECIFIED; N18.9 - CHRONIC KIDNEY DISEASE, UNSPECIFIED Status: Acute (3) Fracture of humerus, proximal, left, closed Code(s): S42.202A - UNSP FRACTURE OF UPPER END OF LEFT HUMERUS, INIT FOR CLOS FX Status: Acute (4) COPD (chronic obstructive pulmonary disease) Status: Chronic Qualifiers: COPD type: chronic bronchitis Chronic bronchitis type: unspecified Qualified Code(s): J42 - Unspecified chronic bronchitis (5) HTN (hypertension) Code(s): I10 - ESSENTIAL (PRIMARY) HYPERTENSION Status: Chronic Qualifiers: Hypertension type: essential hypertension Qualified Code(s): I10 - Essential (primary) hypertension (6) DM type 2 (diabetes mellitus, type 2) Status: Chronic Qualifiers: Diabetes mellitus manager intermediate insulin use: with manager intermediate use Diabetes mellitus complication status: with unspecified complications Qualified Code(s) : E11.8 - Type 2 diabetes mellitus with unspecified complications; Z79.4 - shelter (current) use of insulin (7) Physical deconditioning Code(s): R53.81 - OTHER MALAISE Status: Acute - Plan * Pre-syncope- and dizziness- chronic and stable * Left Humerus fracture- continue sling and pain control * HTN- blood pressure is stable. * DM- blood glucose is stable- will continue monitoring off insulin for now, as blood glucose is low to normal * Rehab screen is in progress
[2018-07-21] MEDS: Allopurinol 100 MG TAB PO SCH (10:05)
[2018-07-21] MEDS: Famotidine 20 MG TAB PO SCH (10:05)
[2018-07-21] MEDS: Colchicine 0.6 MG TAB PO SCH (10:05)
[2018-07-21] MEDS: Amitriptyline HCl 25 MG TAB PO SCH (10:05)
[2018-07-21] MEDS: Amlodipine 5 MG TAB PO SCH (10:05)
[2018-07-21] MEDS: Enoxaparin Sodium 30 MG/0.3 ML SYRINGE SC SCH (10:06)
[2018-07-21] MEDS: Aspirin 81 mg Enteric Coated Tablet PO SCH (10:06)
[2018-07-21 12:10] VITALS: TEMP 98.6
[2018-07-21] MEDS: cloNIDine 0.1 MG TAB PO PRN (12:38)
[2018-07-21] MEDS: traMADol HCl 50 MG TAB PO PRN (12:39)
[2018-07-21 14:14] VITALS: BP 166/89
--- NOTE | 2018-07-21 21:20 | DIS ---
DATE OF ADMISSION: 07/18/2018 DATE OF DISCHARGE: 07/21/2018 DISCHARGE DISPOSITION: To inpatient rehabilitation. DISCHARGE DIAGNOSES: 1. Presyncope. 2. Left proximal humerus fracture, closed. 3. Acute kidney injury, resolved. 4. Diabetes mellitus, type 2. 5. Hypertension. 6. Chronic obstructive pulmonary disease. DISCHARGE MEDICATIONS: Please note that the patient's regular scheduled insulin is on hold. The oth er medications include, Tramadol 50 mg q.6 hours as needed, Nitrostat 0.4 mg sublingual p.r.n., aspir in 81 mg daily, Zofran 4 mg q.8 hours as needed, Singulair 10 mg at bedtime, Lasix 20 mg daily, eszop iclone 2 mg at bedtime, Nexium 40 mg daily, colchicine 0.6 mg twice a day, clonidine 0.1 mg q.4 hours as needed, amitriptyline 25 mg daily, and allopurinol 100 mg daily. CODE STATUS: FULL CODE. ALLERGIES: IBUPROFEN and LEVAQUIN. HOSPITAL COURSE: Ms. Narayan is a pleasant 83-year-old female, who presented to the emergency room after she suffered a fall at home. She fractured her proximal left humerus. She was admitted for p resyncope and it is likely that the presyncope is related to volume depletion due to acute kidney inj ury. She was hydrated from the ER and the symptoms have since improved. This is a chronic condition , which has been evaluated thoroughly in the past. She was seen by [facility] and it was recommended that she have a sling placed to the left upper extremity and the fracture to be day debbie nonsurgically. The patient is extremely weak and had some difficulty with her balance and as suc h will be discharged to inpatient rehabilitation.
--- NOTE | 2018-07-31 13:16 | EKG ---
Test Reason : Blood Pressure : / mmHG Vent. Rate : 074 BPM Atrial Rate : 074 BPM P-R Int : 170 ms QRS Dur : 086 ms QT Int : 438 ms P-R-T Axes : 028 -49 058 degrees QTc Int : 486 ms Normal sinus rhythm Left anterior fascicular block Voltage criteria for left ventricular hypertrophy Abnormal ECG Confirmed by WALKER NORMAN ([id number]), photo editor SHERRIE MARTÍNEZ ([id number] on 07/31/2018 1:15:31 PM Referred By: Confirmed By:WLAKER NORMAN
== END 2018-07-21 17:06 ==
LOC: ERS 17:18 → 2SW 23:24
PROVIDERS: ADMIT Internal Medicine; ATTEND Internal Medicine
DX: R55 Syncope and collapse (principal); S49.002A Unspecified physeal fracture of upper end of humerus, left arm, initial encounter for closed fracture; M97.32XA Periprosthetic fracture around internal prosthetic left shoulder joint, initial encounter; R42 Dizziness and giddiness; J44.9 Chronic obstructive pulmonary disease, unspecified; I25.10 Atherosclerotic heart disease of native coronary artery without angina pectoris; I13.0 Hypertensive heart and chronic kidney disease with heart failure and stage 1 through stage 4 chronic kidney disease, or unspecified chronic kidney disease; E11.22 Type 2 diabetes mellitus with diabetic chronic kidney disease; N18.9 Chronic kidney disease, unspecified; I50.30 Unspecified diastolic (congestive) heart failure; N17.9 Acute kidney failure, unspecified; R53.81 Other malaise; Z96.653 Presence of artificial knee joint, bilateral; Z79.4 Long term (current) use of insulin; Z88.1 Allergy status to other antibiotic agents; Z88.6 Allergy status to analgesic agent; Z98.890 Other specified postprocedural states; Z99.81 Dependence on supplemental oxygen; Z79.899 Other long term (current) drug therapy; W19.XXXA Unspecified fall, initial encounter
CPT/HCPCS: 71045; 73030; 80053; 80069; 82553; 82962 ×3; 83605; 84484; 85025 ×2; 87040; 87086; 90670; 93005; 96365; 96372 ×3; 96375; 97110; 97116 ×2; 97139 ×2; 97530 ×2; 99285; G0009; G0378 ×2; G8978; G8979; G8987; G8988; 36415; 36416; 81003; 81015; 90471; A4216; J0696; J1650; S0028

== ENCOUNTER 2018-08-27 11:43 | Emergency (ER) | payer MEDICARE, MEDICAID ==
[2018-08-27 13:01] LABS: #Basophils 0.1 thou/uL (0.0-0.2); #Eosinphils 0.2 thou/uL (0.0-0.7); #Lymphocytes 2.4 thou/uL (1.20-3.40); #Monocytes 0.5 thou/uL (0.11-0.59); #Neutrophils 3.2 thou/uL (1.40-6.50); %Basophils 0.8 % (0.0-1.0); %Eosinophils 2.7 % (0.0-10.0); %Lymphocytes 37.4 % (21.0-51.0); %Monocytes 7.6 % (0.0-10.0); %Neutrophils 51.5 % (42.0-75.0); Hemoglobin 11.9 g/dL (12.0-16.0); Mean Corpuscular HGB CONC 30.1 g/dL (32.0-36.0); Mean Corpuscular Hemoglobin 25.3 pg (27.0-31.0); Mean Corpuscular Volume 84.2 fL (78.0-98.0); Mean Platelet Volume 8.8 fL (7.4-10.4); Platelet Count 202 thou/uL (130-400); Red Blood Cell (RBC) Count 4.69 mill/uL (4.20-5.40); White Blood Cell (WBC) Count 6.3 thou/uL (4.8-10.8)
[2018-08-27 13:17] LABS: ALT (SGPT) 11 U/L (8-55); AST (SGOT) 20 U/L (5-34); Albumin 3.6 g/dL (3.4-4.8); Alkaline Phosphatase 148 U/L (40-150); Anion Gap 11 mmol/L (10-20); BUN (Urea Nitrogen) 17 mg/dL (9.8-20.1); Bilirubin, Total 0.4 mg/dL (0.2-1.2); CK (CPK) 509 U/L (29-168); Calc. Creatinine Clearance 0 mL/min (70-130); Calcium 9.4 mg/dL (7.8-10.44); Carbon Dioxide 26 mmol/L (23-31); Chloride 107 mmol/L (98-107); Estimated GFR-MDRD 49; Globulin 2.9 g/dL (2.4-3.5); Glucose 113 mg/dL (83-110); Potassium 4.6 mmol/L (3.5-5.1); Protein, Total 6.5 g/dL (6.0-8.3); Sodium 139 mmol/L (136-145)
[2018-08-27 13:21] LABS: CKMB 1.7 ng/mL (0-6.6); Troponin I Less than 0.010 ng/mL (< 0.028)
--- NOTE | 2018-08-29 08:33 | EKG ---
Test Reason : DIZZINESS Blood Pressure : / mmHG Vent. Rate : 066 BPM Atrial Rate : 066 BPM P-R Int : 180 ms QRS Dur : 086 ms QT Int : 438 ms P-R-T Axes : 042 -35 023 degrees QTc Int : 459 ms Normal sinus rhythm Left axis deviation Poor anterior R wave progression Moderate voltage criteria for LVH, may be normal variant Abnormal ECG Confirmed by MARIYA CONSTANTINO ([id number] on 08/29/2018 8:32:52 AM Referred By: Confirmed By:MARIYA CONSTANTINO
== END 2018-08-27 14:04 | disposition home or self-care (01) ==
LOC: ERS 11:43
DX: I11.0 Hypertensive heart disease with heart failure (principal); I50.9 Heart failure, unspecified; E11.9 Type 2 diabetes mellitus without complications; K21.9 Gastro-esophageal reflux disease without esophagitis; E78.5 Hyperlipidemia, unspecified; J45.909 Unspecified asthma, uncomplicated; Z86.73 Personal history of transient ischemic attack (TIA), and cerebral infarction without residual deficits; Z87.891 Personal history of nicotine dependence
CPT/HCPCS: 36415; 80053; 82553; 84484; 85025; 93005

== ENCOUNTER 2018-12-11 13:17 | Emergency (ER) | payer MEDICARE, MEDICAID ==
--- NOTE | 2018-12-11 15:16 | RAD ---
LEFT HIP 2 VIEWS: Date: 12/11/18 HISTORY: Fell with hip pain. FINDINGS: There are some mild arthritic changes of the hip. I do not see any signs of fracture or dislocation. IMPRESSION: No evidence of fracture. POS: [facility]
--- NOTE | 2018-12-11 15:22 | RAD ---
LEFT SHOULDER 3 VIEWS: Date: 12/11/18 HISTORY: Fall with shoulder pain. COMPARISON: 07/18/18 study. FINDINGS: Total shoulder prosthesis is in unchanged position. There is incomplete visualization of the very dis viktoria end of the humeral component of this prosthesis and a humerus film would be recommended to exclud e a fracture in this region. There is a fracture through the humeral shaft proximally, but this was p resent on the previous 07/18/18 study. IMPRESSION: No definite acute injury. I would suggest humerus films for better assessment distally at the level o f the distal tip of the humeral component of the prosthesis. POS: [facility]
--- NOTE | 2018-12-11 15:35 | RAD ---
LEFT HUMERUS 2 VIEWS: Date: 12/11/18 HISTORY: Fell last night with pain. FINDINGS: Total shoulder prosthesis is present. Healed fracture along the stem of the humeral component of the prosthesis is seen. There is no new fracture. IMPRESSION: No evidence of any acute fracture. POS: [facility]
== END 2018-12-11 16:37 | disposition home or self-care (01) ==
LOC: ERS 13:17
DX: M25.512 Pain in left shoulder (principal); M25.552 Pain in left hip; E11.9 Type 2 diabetes mellitus without complications; K21.9 Gastro-esophageal reflux disease without esophagitis; E78.5 Hyperlipidemia, unspecified; I11.0 Hypertensive heart disease with heart failure; I50.9 Heart failure, unspecified; J44.9 Chronic obstructive pulmonary disease, unspecified; Z86.73 Personal history of transient ischemic attack (TIA), and cerebral infarction without residual deficits; Z87.891 Personal history of nicotine dependence; W19.XXXA Unspecified fall, initial encounter

== ENCOUNTER 2021-02-01 19:27 | Observation (INO) | payer MEDICARE, MEDICAID ==
[2021-02-01 20:31] LABS: Bilirubin Negative (Negative); Blood, Urine Negative (Negative); Clarity Clear (Clear); Glucose, Urine (Dipstick) Normal (Negative); Ketone, Urine Trace mg/dL (Negative); Leukocyte Negative Leu/uL (Negative); Nitrite Negative (Negative); Protein, Urine (Dipstick) 50 mg/dL (Neg-Trace); RBC/HPF 0-3 HPF (0-3); Specific Gravity, Urine 1.014 (1.002-1.036); Squamous Epithelial 0-3 HPF (0-3); Urobilinogen Normal mg/dL (Less than 2); WBC/HPF 0-3 HPF (0-3); pH, Urine 5.5 (5.0-9.0)
[2021-02-01 20:33] LABS: Bacteria/HPF Rare-Few HPF (None Seen)
[2021-02-01 20:51] LABS: Anion Gap 23 mmol/L (10-20); BUN (Urea Nitrogen) 26 mg/dL (9.8-20.1); Bilirubin, Total 0.7 mg/dL (0.2-1.2); Calc. Creatinine Clearance 0 mL/min (70-130); Calcium 9.4 mg/dL (7.8-10.44); Carbon Dioxide 22 mmol/L (23-31); Chloride 101 mmol/L (98-107); Glucose 128 mg/dL (83-110); Potassium 3.9 mmol/L (3.5-5.1); Protein, Total 6.8 g/dL (5.8-8.1); Sodium 142 mmol/L (136-145)
[2021-02-01 20:52] LABS: ALT (SGPT) 22 U/L (8-55); AST (SGOT) 32 U/L (5-34); Alkaline Phosphatase 151 U/L (40-110); CK (CPK) 182 U/L (29-168); Globulin 2.8 g/dL (2.4-3.5); Lipase 40 U/L (8-78)
[2021-02-01 20:53] LABS: Hemoglobin 14.6 g/dL (12.0-16.0); Mean Corpuscular HGB CONC 30.5 g/dL (32.0-36.0); Mean Corpuscular Hemoglobin 28.1 pg (27.0-31.0); Mean Corpuscular Volume 92.2 fL (78.0-98.0); Mean Platelet Volume 8.9 fL (7.4-10.4); Platelet Count 147 thou/uL (130-400); RBC Distribution Width 15.5 % (11.5-14.5); Red Blood Cell (RBC) Count 5.18 mill/uL (4.20-5.40); White Blood Cell (WBC) Count 8.4 thou/uL (4.8-10.8)
[2021-02-01 21:18] LABS: Band 1 % (5-11); Eosinophils 1 % (0-10); Lymphocytes 24 % (21-51); MDiff Complete? YES; Monocytes 7 % (0-10); Neutrophil 67 % (42-75)
[2021-02-01 22:17] LABS: CKMB 2.6 ng/mL (0-6.6)
[2021-02-02] MEDS ORDERED: Ondansetron PF 4 MG/2 ML Vial IVP PRN ×2 (00:15→00:46)
[2021-02-02] MEDS ORDERED: Ondansetron ODT 4 MG TAB SL PRN (00:15)
[2021-02-02 00:31] VITALS: BMI 36.3
[2021-02-02] MEDS ORDERED: Dextrose 5% in Water 1,000 ML IV PRN (00:46)
[2021-02-02] MEDS ORDERED: Dextrose 50% Abboject 50 ML SYRINGE SLOW IVP PRN (00:46)
[2021-02-02] MEDS ORDERED: Acetaminophen 325 MG TAB PO PRN (00:46)
[2021-02-02] MEDS ORDERED: HumaLOG 300 UNITS/3 ML VIAL SC PRN (00:46)
[2021-02-02 02:23] LABS: Troponin I 0.037 ng/mL (< 0.028)
[2021-02-02] MEDS: Sodium Chloride 0.9% 1,000 ML IV SCH (03:22)
[2021-02-02 05:31] LABS: SARS-CoV-2 PCR by NAA Not Detected (NotDetected)
[2021-02-02] MEDS ORDERED: FLU VACC QS2020-21(65YR UP)/PF 240 MCG/0.7 ML SYRINGE IM ONE (09:00)
[2021-02-02 10:31] LABS: Troponin I 0.026 ng/mL (< 0.028)
[2021-02-02 13:24] LABS: #Basophils 0.1 thou/uL (0.0-0.2); #Eosinphils 0.1 thou/uL (0.0-0.7); #Lymphocytes 2.6 thou/uL (1.20-3.40); #Monocytes 0.9 thou/uL (0.11-0.59); #Neutrophils 5.4 thou/uL (1.40-6.50); %Basophils 0.8 % (0.0-1.0); %Eosinophils 1.5 % (0.0-10.0); %Lymphocytes 28.2 % (21.0-51.0); %Monocytes 9.6 % (0.0-10.0); %Neutrophils 59.8 % (42.0-75.0); Hemoglobin 13.3 g/dL (12.0-16.0); Mean Corpuscular HGB CONC 32.1 g/dL (32.0-36.0); Mean Corpuscular Hemoglobin 29.2 pg (27.0-31.0); Mean Corpuscular Volume 90.9 fL (78.0-98.0); Mean Platelet Volume 9.3 fL (7.4-10.4); Platelet Count 139 thou/uL (130-400); RBC Distribution Width 15.4 % (11.5-14.5); Red Blood Cell (RBC) Count 4.57 mill/uL (4.20-5.40)
[2021-02-02 16:35] LABS: Anion Gap 17 mmol/L (10-20); BUN (Urea Nitrogen) 28 mg/dL (9.8-20.1); Calc. Creatinine Clearance 36 mL/min (70-130); Carbon Dioxide 22 mmol/L (23-31); Chloride 104 mmol/L (98-107); Glucose 94 mg/dL (83-110); Potassium 3.5 mmol/L (3.5-5.1); Sodium 139 mmol/L (136-145)
[2021-02-03] MEDS: Sodium Chloride 0.9% 1,000 ML IV SCH (05:37)
[2021-02-03 05:51] LABS: #Basophils 0.1 thou/uL (0.0-0.2); #Eosinphils 0.2 thou/uL (0.0-0.7); #Lymphocytes 2.8 thou/uL (1.20-3.40); #Monocytes 0.5 thou/uL (0.11-0.59); #Neutrophils 3.6 thou/uL (1.40-6.50); %Basophils 1.4 % (0.0-1.0); %Eosinophils 2.3 % (0.0-10.0); %Lymphocytes 39.5 % (21.0-51.0); %Monocytes 6.5 % (0.0-10.0); %Neutrophils 50.4 % (42.0-75.0); Hemoglobin 11.6 g/dL (12.0-16.0); Mean Corpuscular HGB CONC 32.2 g/dL (32.0-36.0); Mean Corpuscular Hemoglobin 29.1 pg (27.0-31.0); Mean Corpuscular Volume 90.5 fL (78.0-98.0); Mean Platelet Volume 8.3 fL (7.4-10.4); Platelet Count 150 thou/uL (130-400); RBC Distribution Width 15.2 % (11.5-14.5); Red Blood Cell (RBC) Count 3.98 mill/uL (4.20-5.40); White Blood Cell (WBC) Count 7.1 thou/uL (4.8-10.8)
[2021-02-03 06:20] LABS: Anion Gap 13 mmol/L (10-20); BUN (Urea Nitrogen) 25 mg/dL (9.8-20.1); Calc. Creatinine Clearance 40 mL/min (70-130); Calcium 8.9 mg/dL (7.8-10.44); Carbon Dioxide 25 mmol/L (23-31); Chloride 104 mmol/L (98-107); Glucose 76 mg/dL (83-110); Potassium 3.4 mmol/L (3.5-5.1); Sodium 139 mmol/L (136-145)
[2021-02-03 11:42] VITALS: TEMP 98.2
[2021-02-03 13:57] VITALS: BP 139/75
== END 2021-02-03 14:32 | disposition home health service (06) ==
LOC: ERS 19:27 → 2SW 22:05
PROVIDERS: ADMIT Internal Medicine; ATTEND Hospitalist
DX: R55 Syncope and collapse (principal); E86.0 Dehydration; N17.9 Acute kidney failure, unspecified; I13.0 Hypertensive heart and chronic kidney disease with heart failure and stage 1 through stage 4 chronic kidney disease, or unspecified chronic kidney disease; E11.22 Type 2 diabetes mellitus with diabetic chronic kidney disease; N18.30 Chronic kidney disease, stage 3 unspecified; I50.32 Chronic diastolic (congestive) heart failure; R53.1 Weakness; J44.9 Chronic obstructive pulmonary disease, unspecified; E78.5 Hyperlipidemia, unspecified; F03.90 Unspecified dementia, unspecified severity, without behavioral disturbance, psychotic disturbance, mood disturbance, and anxiety; K21.9 Gastro-esophageal reflux disease without esophagitis; H54.61 Unqualified visual loss, right eye, normal vision left eye; R77.8 Other specified abnormalities of plasma proteins; Z79.82 Long term (current) use of aspirin; Z79.899 Other long term (current) drug therapy; Z86.73 Personal history of transient ischemic attack (TIA), and cerebral infarction without residual deficits; Z87.891 Personal history of nicotine dependence; Z88.1 Allergy status to other antibiotic agents; Z88.6 Allergy status to analgesic agent; Z20.822 Contact with and (suspected) exposure to COVID-19; W18.40XA Slipping, tripping and stumbling without falling, unspecified, initial encounter
CPT/HCPCS: 51701; 70450; 71045; 72125; 80048 ×2; 80053; 82550; 82553; 82962 ×2; 83690; 84484 ×3; 85025 ×3; 87086; 93005; 93306; 97110; 97116; 97139 ×3; 97530; 99285; G0378 ×3; U0003; U0005; 36415; 36416; 81003; 81015; 87635

== ENCOUNTER 2021-03-10 10:55 | Emergency (ER) | payer MEDICARE, MEDICAID ==
[2021-03-10 12:35] LABS: #Eosinphils 0.2 thou/uL (0.0-0.7); #Lymphocytes 2.9 thou/uL (1.20-3.40); #Neutrophils 4.5 thou/uL (1.40-6.50); %Basophils 0.4 % (0.0-1.0); %Eosinophils 2.3 % (0.0-10.0); %Lymphocytes 33.3 % (21.0-51.0); %Monocytes 11.2 % (0.0-10.0); %Neutrophils 52.7 % (42.0-75.0); Hemoglobin 14.8 g/dL (12.0-16.0); Mean Corpuscular HGB CONC 31.9 g/dL (32.0-36.0); Mean Corpuscular Hemoglobin 29.1 pg (27.0-31.0); Mean Corpuscular Volume 91.4 fL (78.0-98.0); Mean Platelet Volume 8.3 fL (7.4-10.4); Platelet Count 194 thou/uL (130-400); Red Blood Cell (RBC) Count 5.08 mill/uL (4.20-5.40); White Blood Cell (WBC) Count 8.6 thou/uL (4.8-10.8)
[2021-03-10 12:55] LABS: ALT (SGPT) 18 U/L (8-55); AST (SGOT) 23 U/L (5-34); Albumin 3.5 g/dL (3.4-4.8); Alkaline Phosphatase 171 U/L (40-110); Anion Gap 14 mmol/L (10-20); BUN (Urea Nitrogen) 21 mg/dL (9.8-20.1); Bilirubin, Total 0.6 mg/dL (0.2-1.2); Calc. Creatinine Clearance 0 mL/min (70-130); Calcium 10.3 mg/dL (7.8-10.44); Carbon Dioxide 25 mmol/L (23-31); Chloride 101 mmol/L (98-107); Globulin 3.3 g/dL (2.4-3.5); Glucose 112 mg/dL (83-110); Lipase 65 U/L (8-78); Protein, Total 6.8 g/dL (5.8-8.1); Sodium 136 mmol/L (136-145)
[2021-03-10 15:43] LABS: Bacteria/HPF None Seen HPF (None Seen); Bilirubin Negative (Negative); Blood, Urine Negative (Negative); Clarity Clear (Clear); Glucose, Urine (Dipstick) Normal (Negative); Ketone, Urine Negative (Negative); Leukocyte Negative Leu/uL (Negative); Nitrite Negative (Negative); Protein, Urine (Dipstick) 50 mg/dL (Neg-Trace); RBC/HPF 0-3 HPF (0-3); Specific Gravity, Urine 1.026 (1.002-1.036); Squamous Epithelial 0-3 HPF (0-3); WBC/HPF 0-3 HPF (0-3); pH, Urine 5.5 (5.0-9.0)
== END 2021-03-10 20:40 | disposition home or self-care (01) ==
LOC: ERS 10:55
DX: K57.90 Diverticulosis of intestine, part unspecified, without perforation or abscess without bleeding (principal); E11.9 Type 2 diabetes mellitus without complications; K21.9 Gastro-esophageal reflux disease without esophagitis; E78.5 Hyperlipidemia, unspecified; E78.00 Pure hypercholesterolemia, unspecified; I11.0 Hypertensive heart disease with heart failure; I50.9 Heart failure, unspecified; J45.909 Unspecified asthma, uncomplicated; F03.90 Unspecified dementia, unspecified severity, without behavioral disturbance, psychotic disturbance, mood disturbance, and anxiety; Z86.73 Personal history of transient ischemic attack (TIA), and cerebral infarction without residual deficits; Z87.891 Personal history of nicotine dependence; Z79.899 Other long term (current) drug therapy; Z79.82 Long term (current) use of aspirin
CPT/HCPCS: 51702; 74176; 80053; 81003; 81015; 83690; 85025